=== PATIENT | male | born 1940 | race Caucasian/White ===

== ENCOUNTER → 2018-08-30 | Outpatient (CLI) | payer MEDICARE ==
--- NOTE | 2018-08-30 13:50 | CT ---
EXAMINATION TYPE: CT lower extremity RT wo con DATE OF EXAM: 08/30/2018 COMPARISON: None. HISTORY: right foot and ankle pain, primary osteoarthritis. CT DLP: 1050 mGycm Automated exposure control for dose reduction was used. FINDINGS: Exam is performed ankle replacement protocol as requested images for presurgical planning and upper d iagnostic purposes. Scanning through right knee shows metallic hardware from prosthesis causing streak artifact grossly s atisfactory in position. Scanning of right ankle shows severe tibiotalar joint space loss with medial tilting of the talus, th ere is asymmetric marked medial narrowing with [id number] formation and extensive subchondral cysti c change. Mild to moderate spurring from the lateral malleolus is present. Moderate spurring anterior posterior tibiotalar joint are noted. Subtalar joint shows moderate spurring and subchondral cystic change. IMPRESSION: ABOVE.
== END ==
LOC: RADCTMAIN 12:11
PROVIDERS: ATTEND Orthopaedic Surgery
DX: M77.52 Other enthesopathy of left foot and ankle (principal)

== ENCOUNTER → 2019-02-28 | Outpatient (CLI) | payer MEDICARE ==
--- NOTE | 2019-02-28 12:47 | CT ---
EXAMINATION TYPE: CT lower extremity RT wo con DATE OF EXAM: 02/28/2019 COMPARISON: 08/30/2018 HISTORY: Rt ankle pain, pre op CT DLP: 556 mGycm Automated exposure control for dose reduction was used. TECHNIQUE: axial images were obtained through the ankle and the knee. Images were obtained at 3 mm th ick sections. There is some limitation as the patient could not get the other leg out of the field-of -view during the exam. See ankle protocol was utilized. FINDINGS: There is a right knee prosthesis. Beam hardening artifact from the prosthesis is present. No acute fr actures are evident. Small joint effusion appears to be present. Right ankle: Degenerative joint changes are present through the ankle mortise. Acute fracture is not identified. Multiple subchondral cysts are evident. Loss of the joint space at the talotibial junctio n. Degenerative changes are also noted at the talocalcaneal junctions. Three-D reconstructed images performed by the technologist are imaged and reviewed. IMPRESSION: 1. IMAGING THROUGH THE RIGHT KN[facility].
== END | disposition home or self-care (01) ==
LOC: RADCTMAIN 11:15
PROVIDERS: ATTEND Orthopaedic Surgery
DX: M25.571 Pain in right ankle and joints of right foot (principal); M19.071 Primary osteoarthritis, right ankle and foot; Z87.891 Personal history of nicotine dependence; Z85.9 Personal history of malignant neoplasm, unspecified

== ENCOUNTER → 2019-04-01 | Outpatient (CLI) | payer MEDICARE | END | disposition home or self-care (01) | LOC: LABPAT 15:50 | PROVIDERS: ATTEND Orthopaedic Surgery | DX: Z01.812 Encounter for preprocedural laboratory examination (principal) | CPT/HCPCS: 87070 ==

== ENCOUNTER 2019-04-14 06:18 | Inpatient (IN) | payer MEDICARE ==
[2019-04-07 11:30] VITALS: BMI 21.4
[~2019-04-14 06:18] MED LIST: HYDROmorphone 0.5 MG/0.5 ML SYRINGE IVP PRN
[2019-04-14] MEDS: LACTATED RINGERS 1,000 ML IV SCH (07:02)
[2019-04-14] MEDS ORDERED: LIDOCAINE 1% 20 ML VIAL (10MG/ML) FOR IV START INTRADERMA ONE (07:03)
[2019-04-14] MEDS ORDERED: ONDANSETRON 4 MG/2 ML VIAL IVP ONE (07:08)
[2019-04-14] MEDS ORDERED: DEXAMETHASONE SOD PHOSPHATE 10 MG/ML 1 ML VIAL IV ONE (07:08)
[2019-04-14 07:19] LABS: Potassium 3.9 mmol/L (3.5-5.1)
[2019-04-14] MEDS ORDERED: LIDOCAINE 2%-EPI 1:100,000 20 ML VIAL ONE (07:58)
[2019-04-14] MEDS ORDERED: MIDAZOLAM 2 MG/2 ML VIAL ONE (07:58)
[2019-04-14] MEDS ORDERED: KETAMINE 10 MG/ML 20 ML VIAL ONE (07:58)
[2019-04-14] MEDS ORDERED: fentaNYL (PF) 50 MCG/ML 2 ML AMP ONE (07:58)
[2019-04-14] MEDS ORDERED: PROPOFOL 10 MG/ML 20 ML VIAL IV ONE (07:58)
[2019-04-14] MEDS ORDERED: diphenhydrAMINE 50 MG/ML 1 ML VIAL ONE (07:58)
[2019-04-14] MEDS ORDERED: ROPIVACAINE 5 MG/ML 30 ML VIAL ONE (07:58)
[2019-04-14] MEDS ORDERED: ceFAZolin 3,000 MG in SODIUM CHLORIDE 0.9% IRRIGATIO 3,000 ML IRRIGATION ONE (08:58)
--- NOTE | 2019-04-14 10:46 | P.OP ---
Date of Procedure: 04/14/19 Preoperative Diagnosis: 1. Right varus ankle arthritis 2. Right gastrocnemius equinus contracture Postoperative Diagnosis: Same Procedure(s) Performed: 1. Right total ankle arthroplasty 2. Right gastrocnemius recession 3. Application of short leg splint by physician, right ankle Anesthesia: regional, spinal Surgeon: Ponce Gross [employer] Repairer #1: Raoul Jack Estimated Blood Loss (ml): 10 IV fluids (ml): 1,200 Pathology: none sent Condition: stable Disposition: PACU Indications for Procedure: The patient is a very pleasant to see healthy 78-year-old male who is a long- standing history of problems with both of his ankles. Several years ago he underwent a TTC fusion on the left and did well with this. He developed progressively worsening pain on the right. We discussed continued nonsurgical treatment with bracing, activity modification, NSAIDs pain medication, and occasional corticosteroid injections versus surgery. The patient failed to improve with nonsurgical treatment and requested to go forward with surgery. Based on the patient's x-ray findings, minimal deformity, age, and motion in the ankle we discussed that he would be a candidate for total ankle replacement. We also discussed the advantages of having a total ankle replacement on the right given his fused left ankle. The patient agreed with this and requested to go forward with an ankle replacement and gastrocnemius recession. The patient had a weakly palpable pulse but well-perfused foot on exam. Given his weakly palpable pulse and age he was sent to vascular surgery for a preoperative workup to determine vascular inflow and his ability to heal an elective right surgery. He was seen by Dr. Prado who cleared him for surgery from a vascular standpoint. He was also cleared by his denture waxer. We discussed the potential risks and complications of an elective ankle replacement including but not limited to risk of anesthesia, superficial infection, deep infection, delayed wound healing, wound necrosis, damage to local blood vessels or nerves, failure of the implant, collapse of the implant, gutter impingement, periprosthetic infection requiring implant removal, risk of need of a fusion, DVT, PE, other medical complications, and possibly loss of life or limb. The patient voiced his understanding of these potential complications and provided his verbal and written consent to go forward with surgery. He also Ignelzi other less common complications are possible. Description of Procedure: The patient was identified in preoperative holding and the correct left ankle was marked with my initials. I reviewed the consent form with the patient and his family. All of their questions were answered. The patient was then brought back to the operating room by anesthesia. He was positioned on the OR table where a spinal anesthetic was given. A tourniquet was applied to the proximal aspect of the right leg. A bump was placed in the right buttock internally rotating the leg to neutral. The left leg was secured to the table with foam and tape. A ramp was placed under the right leg to facilitate imaging. The right leg was then prepped and draped in the standard sterile fashion. Prior to starting surgery timeout was performed identifying the correct patient, operative extremity, and procedure. The patient's leg was then elevated, exsanguinated with an Esmarch bandage, and the tourniquet was inflated to 250 mmHg. The patient was under anesthesia a Silfverskiold test was performed. With the knee extended I was unable to dorsiflex past neutral and when I bent the knee I was able to easily dorsiflexed past neutral. I interpreted this as an isolated gastrocnemius contracture and a gastroc recession was then performed. A 3 cm longitudinal incision was made 1 thumb breadth posterior to the tibia at the distal medial muscle belly of the gastrocnemius. The fascia was incised longitudinally in line with the skin incision. The gastrocnemius aponeurosis was isolated. The sural nerve was found to be adherent to the superficial fascia. Modified right angle retractors were placed and the gastrocnemius was cut in its entirety from medial to lateral. The plantaris muscle was also identified and a 1 cm section was removed. The wound was then thoroughly irrigated and closed in layers with 2-0 Vicryl the deep subcu and a running 3-0 Monocryl subcuticular stitch for the skin. Attention was then turned to the ankle. A standard anterior approach to the ankle was marked out with a skin marker. Skin incision was made with a scalpel. A branch of the superficial peroneal nerve was identified and carefully retracted. The extensor retinaculum was cut taking care to leave coverage over the tibialis anterior. I exploited the interval between the tibialis anterior and EHL. The neurovascular bundle was identified and carefully retracted laterally. Crossing veins were controlled with electrocautery. An anterior capsulotomy was performed and the capsule was raised both medially and laterally to expose the entire anterior aspect of the ankle joint. Soft tissue over the anterior aspect of the distal tibia was carefully elevated with a scalpel. The custom guide was placed over the distal tibia until it found its "sweet spot." A single K wire was in third inserted and fluoroscopy was used to verify alignment of the cut guide. Once it was felt to matched preoperative templating 3 additional K wires were placed into the cut guide holding it in place. The custom guide was carefully taken off of the tibia and the alignment jig was placed and secured. The corners were drilled after alignment was verified with preoperative templating. A size 4 cut guide was then placed over the pins. The pins distally were cut flush with the cut guide. The ankle was held at neutral and the talus was also cut to allow and in bone prosthesis. Fluoroscopy was used to verify position of the cut guide. Gutter pins were placed. A microsagittal saw was used to make cuts in the tibia and talus. The cut guide was then removed followed by all of the pins except for the 2 most proximal pins. The cut talus was able to be removed in 1 piece. The extraction pin was placed in the tibia which was then carefully removed. On inspection the cuts appeared to be clean with no impinging bone. The wound was thoroughly irrigated. An aggressive cutter debridement was performed. The tibial tray was placed and the anterior and posterior broach handles created paths for the implant. I elected to use a standard size 4 tibial component. I then placed a trial poly-insert and floated a size 3 talus. Once it found it sweet spot fluoroscopy was used to verify coverage on both an AP and lateral image. Once I was happy it was pinned into place. The anterior pegs were drilled. The ankle was plantarflexed and the central pin was placed. The tibial tray anterior component were removed and the large reamer was used to create a central slot for the peg. The wound was then thoroughly irrigated. The standard size 4 tibial component was dispensed and carefully tapped into place until it was fully seated. The implant had nice coverage and was all the way down to bone anteriorly and felt solid. The size 3 talar component was dispensed and gently tapped into place until it was fully seated. I trialed with a 7 mm poly-which felt stable. The final 7 mm poly-was placed in the insertion device and gently inserted. Final fluoroscopic images were taken including a chair mortise and lateral view, maximum dorsiflexion, maximum plantar flexion, varus stress, and valgus stress. The implant appeared well seated and the ankle was stable. The wound was then thoroughly irrigated with antibiotic impregnated saline. The capsule was closed with interrupted 0 Vicryl. The retinaculum was closed with interrupted 0 Vicryl. The deep subcu was carefully reapproximated using interrupted 3-0 Monocryl. The skin was closed using 3-0 nylon Algor modification of the Donati stitch. I verified that all instrument, sponge, and sharp counts were correct. Brown quarter inch stretchy Steri-Strips were placed between the sutures. A sterile dressing consisting of Betadine soaked Adaptic, 4 x 4, and web roll was applied. The drapes were taken down and a well-padded bulky Fonseca splint was placed with the ankle at neutral. The patient was then awoken from his anesthetic, transferred to a gurney, and brought to recovery having tolerated the procedure well. Raoul Jack PA-C was required as a skilled outpatient physical therapist assistant for patient positioning, surgical exposure, retraction, closure of wound, and application of splint. Plan: The patient is given a be admitted overnight for IV antibiotics and pain control. We will consult internal medicine for perioperative medical ma lenin. He will work with physical therapy. I anticipate discharge home tomorrow when his pain is controlled, he is receive 2 doses of postoperative antibiotics and he is cleared by both internal medicine and physical therapy.
--- NOTE | 2019-04-14 10:51 | FL ---
EXAMINATION TYPE: FL guidance operating room, XR ankle limited RT DATE OF EXAM: 04/14/2019 CLINICAL HISTORY: Right ankle pain. TECHNIQUE: Fluoroscopy. Limited intraoperative views right ankle. COMPARISON: CT right ankle February 28, 2019. FINDINGS: Fluoroscopic guidance was provided during ankle replacement procedure performed by Dr. Marisa perez. A total of 1 minute 5 seconds of fluoroscopic time was utilized during the procedure and two spot intraoperative images are acquired. Intraoperative images acquired show placement of metallic hardware distal tibial level and at the lev el of the superior talus in satisfactory alignment. IMPRESSION: As Above.
[2019-04-14] MEDS ORDERED: BISACODYL 10 MG SUPP RECTAL PRN (10:57)
[2019-04-14] MEDS ORDERED: HYDROcodone/APAP 5-325MG 1 EACH TAB PO PRN (10:57)
[2019-04-14] MEDS ORDERED: NALOXONE 0.4 MG/ML 1 ML VIAL IV PRN (10:57)
[2019-04-14] MEDS ORDERED: MAGNESIUM HYDROXIDE 2,400 MG/10 ML CUP PO PRN (10:57)
--- NOTE | 2019-04-14 12:23 | P.ANPRN ---
Procedure Note - Anesthesia - Nerve Block Performed Right Saphenous/Obturator Single Time Out Performed: Yes Date of Procedure: 04/14/19 Procedure Start Time: 11:43 Procedure Stop Time: 11:51 Location of Patient Procedure: PACU Indication: Acute Post-Operative Pain, Requested by Surgeon Specifically requested for management of pain by DrJuan Manuel: Ponce Gross Sedation Type: Sedate with meaningful contact maintained Preparation: Sterile Prep Position: Supine Catheter: None Needle Types: Pajunk Needle Gauge: 20 Ultrasound used to visualize needle placement: Yes Ultrasound used to observe medication spread: Yes Injectate: Other (see comment) (0.25% ropivacaine/1% lidocaine 20 mL) Adjunct: Epinephrine (see comment for dilution ratio) (1:200,000) Blood Aspirated: No Pain Paresthesia on Injection Noted: No Resistance on Injection: Normal Image Stored and Saved: Yes Events: Uneventful and Well Tolerated
--- NOTE | 2019-04-14 12:24 | P.ANPRN ---
Procedure Note - Anesthesia - Nerve Block Performed Right Popliteal Single Time Out Performed: Yes Date of Procedure: 04/14/19 Procedure Start Time: 11:52 Procedure Stop Time: 12:00 Location of Patient Procedure: PACU Indication: Acute Post-Operative Pain, Requested by Surgeon Specifically requested for management of pain by DrJuan Manuel: Ponce Gross Sedation Type: Sedate with meaningful contact maintained Preparation: Sterile Prep Position: Left Lateral Catheter: None Needle Types: Pajunk Needle Gauge: 21 Ultrasound used to visualize needle placement: Yes Ultrasound used to observe medication spread: Yes Injectate: Other (see comment) (0.25% ropivacaine/1% lidocaine 20 mL) Adjunct: Epinephrine (see comment for dilution ratio) (1:200,000) Blood Aspirated: No Pain Paresthesia on Injection Noted: No Resistance on Injection: Normal Image Stored and Saved: Yes Events: Uneventful and Well Tolerated
[2019-04-14] MEDS ORDERED: LACTATED RINGERS 1,000 ML IV ONE (13:32)
[2019-04-14] MEDS: SODIUM CHLORIDE 0.9% 1,000 ML IV SCH ×2 (14:56→22:48)
[2019-04-14] MEDS: ENOXAPARIN 30 MG/0.3 ML SYRINGE SQ SCH (20:34)
[2019-04-14] MEDS ORDERED: SENNOSIDES-DOCUSATE SODIUM 1 EACH TAB PO SCH (21:00)
[2019-04-15] MEDS: HYDROcodone/APAP 10-325MG 1 EACH TAB PO PRN ×2 (01:41→10:08)
[2019-04-15] MEDS: HYDROmorphone 0.5 MG/0.5 ML SYRINGE IVP PRN ×2 (01:41→04:42)
[2019-04-15 02:17] VITALS: RESP 16
[2019-04-15] MEDS: LACTATED RINGERS 1,000 ML IV SCH (02:28)
[2019-04-15 07:32] VITALS: BP 113/65; PULSE 59; TEMP 97.9
[2019-04-15] MEDS: SODIUM CHLORIDE 0.9% 1,000 ML IV SCH (08:57)
[2019-04-15] MEDS: ENOXAPARIN 30 MG/0.3 ML SYRINGE SQ SCH (09:24)
[2019-04-15] MEDS ORDERED: MULTIVITAMINS, THERA 1 EACH TAB PO SCH (12:00)
== END 2019-04-15 11:27 | disposition home or self-care (01) | DRG 469 ==
LOC: 2ORMAIN 06:18 → 4SSUR 10:48
PROVIDERS: ADMIT Orthopaedic Surgery; ATTEND Orthopaedic Surgery
PROC: 0L8N0ZZ Division of Right Lower Leg Tendon, Open Approach (ICD-10-PCS; 2019-04-14)
PROC: 0SRF0JZ Replacement of Right Ankle Joint with Synthetic Substitute, Open Approach (ICD-10-PCS; principal; 2019-04-14 08:00)
DX: M62.461 Contracture of muscle, right lower leg (principal); M19.071 Primary osteoarthritis, right ankle and foot; Z85.828 Personal history of other malignant neoplasm of skin; Z98.1 Arthrodesis status; Z96.651 Presence of right artificial knee joint; Z87.891 Personal history of nicotine dependence; Z79.899 Other long term (current) drug therapy
CPT/HCPCS: 64445; 64450; 76942; 80051

== ENCOUNTER 2019-06-10 13:53 | Day surgery (SDC) | payer MEDICARE ==
[~2019-06-10 13:53] MED LIST changes: -HYDROmorphone 0.5 MG/0.5 ML SYRINGE IVP PRN; +Pre Op ABX Message 1 EACH MISC MISCELLANE ONE
[2019-06-10] MEDS ORDERED: LIDOCAINE 1% 20 ML VIAL (10MG/ML) FOR IV START INTRADERMA ONE (14:00)
[2019-06-10] MEDS ORDERED: LACTATED RINGERS 1,000 ML IV ONE (14:43)
[2019-06-10] MEDS ORDERED: ONDANSETRON 4 MG/2 ML VIAL IVP ONE (14:44)
[2019-06-10] MEDS ORDERED: DEXAMETHASONE SOD PHOSPHATE 10 MG/ML 1 ML VIAL IV ONE (14:44)
[2019-06-10] MEDS ORDERED: fentaNYL (PF) 50 MCG/ML 2 ML AMP IV ONE (14:49)
[2019-06-10] MEDS ORDERED: LIDOCAINE 1% INJ 10MG/ML (20 ML MDV) ONE (17:11)
[2019-06-10] MEDS ORDERED: ePHEDrine SULFATE/0.9% NACL/PF 50 MG/5 ML SYRINGE IV ONE (17:11)
[2019-06-10] MEDS ORDERED: VANCOMYCIN 1,000 MG VIAL ONE (17:11)
[2019-06-10] MEDS ORDERED: fentaNYL (PF) 50 MCG/ML 2 ML AMP ONE (17:11)
[2019-06-10] MEDS ORDERED: MIDAZOLAM 2 MG/2 ML VIAL ONE (17:11)
[2019-06-10] MEDS ORDERED: PROPOFOL 10 MG/ML 20 ML VIAL IV ONE (17:11)
[2019-06-10] MEDS ORDERED: SODIUM CHLORIDE 0.9% 100 ML with VANCOMYCIN 1,000 MG IV ONE ×2 (18:41)
[2019-06-10] MEDS ORDERED: SODIUM CHLORIDE 0.9% 500 ML 500 ML IV ONE (18:41)
[2019-06-10] MEDS ORDERED: BUPIVACAINE (PF) 0.5% 30 ML VIAL SQ ONE (19:04)
[2019-06-10] MEDS ORDERED: LIDOCAINE 1% INJ 10MG/ML (20 ML MDV) SQ ONE (19:04)
[2019-06-10] MEDS ORDERED: ONDANSETRON 4 MG/2 ML VIAL IVP PRN (19:22)
[2019-06-10] MEDS ORDERED: HYDROcodone/APAP 5-325MG 1 EACH TAB PO PRN (19:22)
[2019-06-10] MEDS ORDERED: HYDROmorphone 0.5 MG/0.5 ML SYRINGE IVP PRN (19:22)
[2019-06-10] MEDS ORDERED: VANCOMYCIN IV PER PHARMACY 1 EACH MISC MISCELLANE PRN (19:30)
--- NOTE | 2019-06-10 19:41 | P.OP ---
Date of Procedure: 06/10/19 Preoperative Diagnosis: Left hand/wrist extensor tenosynovitis Postoperative Diagnosis: Left hand/wrist extensor tenosynovitis - likely septic Procedure(s) Performed: 1. Exploration, irrigation and debridement of left hand/wrist with extensor tenosynovectomy 2. PIN (Posterior interosseous nerve) Neurectomy Anesthesia: RACH, local Surgeon: Kike Grant Estimated Blood Loss (ml): 10 Pathology: other (Culture swabs, Extensor tendon fluid for crystal analysis) Condition: stable Disposition: PACU Indications for Procedure: The patient is a 78-year-old male who was diagnosed with extensor tenosynovitis of his right hand. Initially, it appeared inflammatory in aseptic; however, he developed progressively worsening pain and swelling, concerning for a possible infectious process. Surgical debridement was recommended. Risks and benefits were reviewed including (but not limited to) the risks of bleeding, injury to tendons or neurovascular structures, persistent or recurrent infection, wound healing problems, stiffness, adhesions and possible need for additional surgery. The patient expressed understanding, willingness to accept these risks and wished to proceed with surgery. Consent forms were signed. The surgical site was confirmed and marked preoperatively. Operative Findings: The dorsal subcutaneous tissues were markedly edematous with thin person fluid diffusely along the dorsal wrist and hand; 3-4 cc of thick, cloudy yellow fluid was encountered in the fourth dorsal compartment. No obvious tendon damage. Description of Procedure: The patient was brought to the operating suite by the anesthesia team and was positioned supine. All bony prominences were well-padded. General anesthesia was administered uneventfully. A tourniquet was placed on the right arm, which was then prepped and draped in standard, sterile fashion. A time-out was performed, confirming patient identifiers, the operative side, site and the procedure to be performed: all team members expressed agreement. The limb was exsanguinated with gravity and the tourniquet was inflated. A midline longitudinal incision was marked over the dorsal hand and wrist. The skin was sharply incised and skin flaps were elevated, taking care to protect traversing dorsal veins and sensory nerve branches. There was an abundant amount of thin, person fluid throughout the dorsal subcutaneous tissues. A specimen was collected and sent for crystal analysis. A moderate amount of fibrinous tenosynovial tissue was identified along the common digital extensors. A transverse split was made between the extensor retinaculae of the hand and wrist. The fourth compartment was bluntly explored and a large pocket of thick, cloudy yellow fluid was encountered. A culture swab of this fluid was obtained and sent with a specimen of the tenosynovial tissue. The patient was then administered IV vancomycin intraoperatively. A combination of sharp and mechanical debridement, with scalpels and rongeurs, was used to resect this thickened tissue off the extensor tendons. The tendons showed no significant fraying or degenerative changes. The posterior interosseous nerve was identified in the floor of the fourth compartment. A 1 cm segment was sharply excised for adjunctive postoperative pain control. After thorough debridement of the extensor tendons, the wound was copiously irrigated with 4 L of normal saline using gravity inflow and cystoscopy tubing. The surrounding soft tissues were mechanically debrided with a curette. The tourniquet was released after 53 minutes at 250 mmHg. Good hemostasis was obtained with held pressure and electrocautery. The incision was loosely closed with interrupted 4-0 Prolene sutures. A 10 mm channel drain was cut into 3 pieces which were inserted along the wound to allow for drainage. Local anesthetic without epinephrine was injected for postoperative pain control. Sterile dressings of Adaptic, 4 x 4's, Kerlix and Coban were applied. All sponge, needle and instrument counts were correct at the end of the case. The patient tolerated the procedure well and was taken to recovery in stable condition. He will be admitted for continued monitoring and empiric IV antibiotics, to be guided by intraoperative cultures.
[2019-06-10] MEDS ORDERED: VANCOMYCIN 1,250 MG in SODIUM CHLORIDE 0.9% 250 ML IVPB ONE (21:00)
[2019-06-10 23:21] LABS: African American GFR (CKD) >90 (>60 ml/min/1.73 sqM); Anion Gap 6 mmol/L; Blood Urea Nitrogen 19 mg/dL (9-20); C Reactive Protein 62.7 mg/L (<10.0); Calcium 8.8 mg/dL (8.4-10.2); Carbon Dioxide 27 mmol/L (22-30); Chloride 103 mmol/L (98-107); Glucose 244 mg/dL (74-99); Non-African American GFR(CKD) 87 (>60 ml/min/1.73 sqM); Potassium 4.4 mmol/L (3.5-5.1); Sodium 136 mmol/L (137-145); Uric Acid 6.2 mg/dL (3.5-8.5)
[2019-06-10 23:26] LABS: Basophils % (A) 0 %; Eosinophils % (A) 0 %; HGB 11.7 gm/dL (13.0-17.5); Lymphocytes # (A) 0.5 k/uL (1.0-4.8); Lymphocytes % (A) 6 %; MCH 31.1 pg (25.0-35.0); MCHC 33.5 g/dL (31.0-37.0); MCV 92.9 fL (80.0-100.0); Monocytes # (A) 0.2 k/uL (0-1.0); Monocytes % (A) 3 %; Neutrophils # (A) 7.5 k/uL (1.3-7.7); Neutrophils % (A) 90 %; Platelet Count 242 k/uL (150-450); RBC 3.76 m/uL (4.30-5.90); RDW 14.4 % (11.5-15.5); WBC 8.3 k/uL (3.8-10.6)
[2019-06-11 00:21] LABS: Erythrocyte Sedimentation Rate 52 mm/hr (0-15)
[2019-06-11] MEDS: ENOXAPARIN 40 MG/0.4 ML SYRINGE SQ SCH (07:25)
[2019-06-11] MEDS ORDERED: ALBUTEROL NEBULIZED 2.5 MG/3 ML INHALATION PRN (07:55)
[2019-06-11] MEDS ORDERED: VANCOMYCIN IV PER PHARMACY 1 EACH MISC MISCELLANE PRN (07:56)
[2019-06-11 08:27] LABS: Glucose,Whole Blood 252 mg/dL (75-99)
[2019-06-11] MEDS: MONTELUKAST 10 MG TAB PO SCH (08:37)
[2019-06-11] MEDS: ASPIRIN 81 MG PO SCH (08:37)
[2019-06-11] MEDS: INSULIN ASPART (NovoLOG) 100 UNIT/ML VIAL SQ SCH ×4 (08:40→21:39)
--- NOTE | 2019-06-11 08:46 | P.CONS ---
History of Present Illness - Reason for Consult Consult date: 06/11/19 [facility] Requesting physician: Kike Grant - Chief Complaint Right hand pain and swelling - History of Present Illness Patient is an 78-year-old male past medical history of COPD, severe osteoarthritis, and dyslipidemia who presented to the hospital at the direction of Dr. Grant. He was seen in the office on 06/10 and noted to have worsening lying of his right hand at the MCP and therefore was brought into the OR for operative I&D for tenosynovitis. He underwent the procedure well without any immediate postoperative complications. Patient seen and examined at bedside. He reports that secondary to right hand swelling he started seeing Dr. Grant 2 weeks ago. His right hand knuckles swollen at the MCP and boggy feeling. He was having lots of pain and difficult difficulty with movement. He reports that he could not fully extend or flex his fingers. He was supposed to have a follow-up appointment on 06/13 however his pain was so severe that he called the office on 06/09 and they were able to see him in office on 06/10. Eyes any constitutional symptoms such as fevers, chills, right ear, chest pain, shortness of breath, nausea, vomiting, or diarrhea. Reports a Hx of arthritis but no gout. He had a R total ankle replacement with Dr. Florez in April who notice increased swelling in Right hand during his follow-up appointment and recommended seeing Dr. Grant. He has been using a walker cane since having his ankle replacement but was not using one prior. He denies any trauma to the hand such as falls, cuts, scratches, or bug bites. PCP. Dr. Weber last seen about 1 month ago. Blood sugar was noted to be 243 after surgery, patient denies any history of diabetes. He follows with Dr. Weber approximately once every 3-6 months. He denies any family history of diabetes. Review of Systems Pertinent positives and negatives as discussed in HPI, a complete review of systems was performed and all other systems are negative. Past Medical History Past Medical History: Cancer, COPD, Hyperlipidemia, Osteoarthritis (OA) Additional Past Medical History / Comment(s): SKIN CANCER History of Any Multi-Drug Resistant Organisms: None Reported Past Surgical History: Appendectomy, Back Surgery, Joint Replacement Additional Past Surgical History / Comment(s): TOTAL RIGHT KNEE, ARTHROSCOPIC RIGHT KNEE, LT ANKLE FUSION, TOTAL RIGHT ANKLE REPLACEMENT, Spinal Fusion Past Anesthesia/Blood Transfusion Reactions: No Reported Reaction Past Psychological History: No Psychological Hx Reported Smoking Status: Former smoker Past Alcohol Use History: Rare Additional Past Alcohol Use History / Comment(s): STARTED SMOKING AT AGE 19 QUIT SMOKING 2013 SMOKED 1/2PPD Past Drug Use History: None Reported Additional History: Youngest daughter living with him. Using walker after ankle replacement. - Past Family History Brother(s) Family Medical History: Cancer Additional Family Medical History / Comment(s): "LYMPH NODE CANCER" Mother Family Medical History: Myocardial Infarction ([place]) Father Family Medical History: Myocardial Infarction ([place]) Medications and Allergies Home Medications Medication Instructions Recorded Confirmed Type Albuterol Inhaler [Ventolin Hfa 1 - 2 puff INHALATION RT-Q6H PRN 04/07/19 06/10/19 History Inhaler] Aspirin [Adult Low Dose Aspirin EC] 81 mg PO DAILY 04/07/19 06/10/19 History Fluticasone/Salmeterol [Advair 1 inhalation PO BID 04/07/19 06/10/19 History 250-50 Diskus] Montelukast [Singulair] 10 mg PO DAILY 04/07/19 06/10/19 History Hydrocodone/Acetaminophen [[place] 1 tab PO Q6HR PRN #30 tab 04/15/19 06/10/19 Rx 5-325] Albuterol Nebulized [Ventolin 06/10/19 History Nebulized] Pravastatin Sodium [Pravachol] 10 mg PO DAILY 06/10/19 06/10/19 History Allergies Allergy/AdvReac Type Severity Reaction Status Date / Time No Known Allergies Allergy Verified 04/14/19 06:41 Physical Exam Osteopathic Statement: *. No significant issues noted on an osteopathic structural exam other than those noted in the History and Physical/Consult. Vitals: Vital Signs Temp Pulse Pulse Resp BP Pulse Ox 06/11/19 04:40 97.4 F L 62 16 120/58 96 06/11/19 01:06 130/60 06/11/19 00:00 62 84 16 06/10/19 23:31 130/86 06/10/19 23:24 95/47 06/10/19 22:24 62 109/53 06/10/19 21:54 75 130/59 06/10/19 21:35 65 115/57 06/10/19 21:20 64 113/57 06/10/19 21:05 67 116/58 06/10/19 20:50 130/56 06/10/19 20:39 97.6 F 78 16 153/78 94 L 06/10/19 20:35 71 142/58 06/10/19 20:20 84 18 151/81 98 06/10/19 20:05 75 18 127/65 95 06/10/19 19:50 75 18 128/61 95 06/10/19 19:35 72 18 117/59 99 06/10/19 19:20 98.4 F 78 19 124/72 99 06/10/19 15:01 73 16 121/58 99 06/10/19 14:36 98.3 F 78 16 126/60 97 Intake and Output 06/10/19 06/11/19 06/11/19 22:59 06:59 14:59 Intake Total 550 840 Output Total 10 Balance 540 840 Intake: IV 550 Intake, IV Titration 250 Amount Vancomycin 1,250 mg In 250 Sodium Chloride 0.9% 250 ml @ 125 mls/hr IVPB Q12H [facility] Rx#:[id number] Oral 590 Output: Estimated Blood Loss 10 Other: # Voids 1 2 # Bowel Movements 1 Weight 71.668 kg General: non toxic, no distress, appears younger than stated age, normal weight Derm: no unusual rashes/lesions no unusual ecchymoses, warm, dry Head: atraumatic, normocephalic, symmetric Eyes: EOMI, no lid lag, anicteric sclera, pupils equal round reactive to light ENT: Nose and ears atraumatic, no thrush, no pharyngeal erythema Neck: No thyromegaly, no cervical lymphadenopathy, trachea midline, supple Mouth: no lip lesion, mucus membranes moist Cardiovascular: S1S2 reg, no murmur, positive posterior tibial pulse bilateral, no edema, capillary refill less than 2 seconds Lungs: CTA bilateral, no rhonchi, no rales , no accessory muscle use Abdominal: soft, nontender to palpation, no guarding, no appreciable organomegaly, normal bowel sounds Ext: Right hand with dressing in place, movement normal in right ringers, no gross muscle atrophy, muscle strength 5 out of 5 in all 4 extremities grossly, no contractures, Neuro: CN II-XI grossly intact, light touch intact all 4 extremities, finger to nose within normal limits, Psych: Alert, oriented, appropriate affect Results CBC & Chem 7: 06/10/19 22:56 06/10/19 22:56 Labs: Abnormal Lab Results - Last 24 Hours (Table) 06/10/19 06/10/19 06/10/19 Range/Units 19:10 22:56 22:56 RBC 3.76 L (4.30-5.90) m/uL Hgb 11.7 L (13.0-17.5) gm/dL Hct 35.0 L (39.0-53.0) % Lymphocytes # 0.5 L (1.0-4.8) k/uL ESR 52 H (0-15) mm/hr Sodium 136 L (137-145) mmol/L Glucose 244 H (74-99) mg/dL C-Reactive Protein 62.7 H (<10.0) mg/L Synovial Crystals Seen H (None Seen) Microbiology - Last 24 Hours (Table) 06/10/19 19:10 Fungal Culture - Preliminary Other - Other 06/10/19 19:10 Wound Culture - Preliminary Other - Other 06/10/19 19:10 Anaerobic Culture - Preliminary Other - Other Assessment and Plan Assessment: Right hand tenosynovitis - Pharmacy to dose IV vanco - Await for cultures - Monosodium urate crystals noted in synovial fluid. Conisder colchicine if appropraite by ortho/hand. Would avoid steroids if possible with elevated Blood sugars. - Pain control - ? if can still use walker or should convert to micky or 4 pronged cane, await ortho recs Hyperglycemia without formal diagnosis of DM - SSI - Follow BS - Check A1C HLD - statin COPD without exacerbation - resume long acting beta agonist and inhaled corticosteroid - prn albuterol DVT prophylaxis: SCDs Discussed with: Patient, and nursing Anticipated discharge: per ortho Anticipated discharge place: home with home health A total of 60 minutes was spent on the care of this complex patient more than 50% of the time was spent in counseling and care coordination. Thank you for allowing us to participate in the care of this pleasant patient. Do not hesitate to contact us with questions. Someone can be reached from the [facility] hospitalist group all hours of the day at [phone] or via perfect serve.
[2019-06-11] MEDS: SYMBICORT 80-4.5 MCG INHALER INHALATION SCH ×2 (10:20→20:49)
[2019-06-11 11:29] LABS: Glucose,Whole Blood 87 mg/dL (75-99)
[2019-06-11] MEDS: PRAVASTATIN SODIUM 20 MG TAB PO SCH (11:35)
[2019-06-11] MEDS: VANCOMYCIN 1,250 MG in SODIUM CHLORIDE 0.9% 250 ML IVPB SCH ×2 (11:35→22:41)
[2019-06-11 17:18] LABS: Glucose,Whole Blood 120 mg/dL (75-99)
--- NOTE | 2019-06-11 19:21 | P.PN ---
Subjective Progress Note Date: 06/11/19 The patient states the pain has decreased substantially compared to preop, presently 1-2. Doesn't feel he needs pain medication at its current level. Has been ranging the fingers frequently as instructed and says they are moving much better. Objective - Vital Signs Vital signs: Vital Signs Temp 98.7 F 06/11/19 11:33 Pulse 68 06/11/19 11:33 Resp 18 06/11/19 11:33 BP 113/55 06/11/19 11:33 Pulse Ox 96 06/11/19 04:40 Intake & Output 06/10/19 06/11/19 06/11/19 18:59 06:59 18:59 Intake Total 950 840 Output Total 10 Balance 950 830 Weight 71.668 kg 71.668 kg Intake: IV 950 Intake, IV Titration 250 Amount Vancomycin 1,250 mg In 250 Sodium Chloride 0.9% 250 ml @ 125 mls/hr IVPB Q12H [facility] Rx#:[id number] Oral 590 Output: Estimated Blood Loss 10 Other: # Voids 2 # Bowel Movements 1 - Exam The dressings were removed. Appropriate amount of dried blood on the dressings. No active bleeding. No purulence. The proximal and distal drains were removed-no fluid followed. No erythema. No focal subcutaneous fluctuance. Minimal tenderness to palpation. He is able to actively flex and extend the fingers with minimal pain and can make a loose fist. - Labs CBC & Chem 7: 06/10/19 22:56 06/10/19 22:56 Labs: Abnormal Lab Results - Last 24 Hours (Table) 06/10/19 06/10/19 06/10/19 Range/Units 19:10 22:56 22:56 RBC 3.76 L (4.30-5.90) m/uL Hgb 11.7 L (13.0-17.5) gm/dL Hct 35.0 L (39.0-53.0) % Lymphocytes # 0.5 L (1.0-4.8) k/uL ESR 52 H (0-15) mm/hr Sodium 136 L (137-145) mmol/L Glucose 244 H (74-99) mg/dL POC Glucose (mg/dL) (75-99) mg/dL C-Reactive Protein 62.7 H (<10.0) mg/L Synovial Crystals Seen H (None Seen) 06/11/19 Range/Units 08:26 RBC (4.30-5.90) m/uL Hgb (13.0-17.5) gm/dL Hct (39.0-53.0) % Lymphocytes # (1.0-4.8) k/uL ESR (0-15) mm/hr Sodium (137-145) mmol/L Glucose (74-99) mg/dL POC Glucose (mg/dL) 252 H (75-99) mg/dL C-Reactive Protein (<10.0) mg/L Synovial Crystals (None Seen) Microbiology - Last 24 Hours (Table) 06/10/19 19:10 Gram Stain - Preliminary Other - Other Wound Culture - Preliminary 06/10/19 19:10 Fungal Culture - Preliminary Other - Other 06/10/19 19:10 Anaerobic Culture - Preliminary Other - Other Assessment and Plan Assessment: 1. Postoperative day #1 status post irrigation and debridement of left hand and wrist with extensor tenosynovectomy 2. Acute gouty tendinopathy 3. Hyperglycemia - possible diabetes mellitus Plan: I discussed the clinical and intraoperative findings with the patient and his f amily. Intraoperative specimens showed the presence of monosodium urate crystals, consistent with acute gouty tendinopathy. While this could simply be an aseptic inflammatory tenosynovitis, infections can present concomitantly with gout. I recommended continuing empiric IV antibiotics until cultures have been finalized. We will check blood cultures as well. New dressings were applied. He was encouraged to continue performing active and passive wrist and digital range of motion. He may weight-bear as tolerated with a walker. He must wear the boot when ambulating.
[2019-06-11 20:14] LABS: Glucose,Whole Blood 113 mg/dL (75-99)
[2019-06-12 07:10] LABS: Glucose,Whole Blood 106 mg/dL (75-99)
[2019-06-12 07:55] LABS: African American GFR (CKD) >90 (>60 ml/min/1.73 sqM); Non-African American GFR(CKD) 86 (>60 ml/min/1.73 sqM)
[2019-06-12] MEDS: INSULIN ASPART (NovoLOG) 100 UNIT/ML VIAL SQ SCH ×2 (07:59→11:50)
[2019-06-12] MEDS: ENOXAPARIN 40 MG/0.4 ML SYRINGE SQ SCH (08:02)
[2019-06-12] MEDS: ASPIRIN 81 MG PO SCH (08:02)
[2019-06-12] MEDS: MONTELUKAST 10 MG TAB PO SCH (08:02)
[2019-06-12] MEDS: PRAVASTATIN SODIUM 20 MG TAB PO SCH (08:02)
[2019-06-12] MEDS: SYMBICORT 80-4.5 MCG INHALER INHALATION SCH (08:08)
[2019-06-12 11:27] LABS: Glucose,Whole Blood 91 mg/dL (75-99)
[2019-06-12] MEDS: VANCOMYCIN 1,250 MG in SODIUM CHLORIDE 0.9% 250 ML IVPB SCH (12:23)
[2019-06-12 13:37] VITALS: BP 123/61; PULSE 61; RESP 17; TEMP 98.1
--- NOTE | 2019-06-12 14:20 | P.PN ---
Subjective Progress Note Date: 06/12/19 The patient reports continued improvement in both pain and ease of movement. He denies any nausea or vomiting. He states that he is feeling much better and is eager to go home. Objective - Vital Signs Vital signs: Vital Signs Temp 97.4 F L 06/12/19 04:46 Pulse 68 06/12/19 08:30 Resp 18 06/12/19 08:30 BP 110/51 06/12/19 04:46 Pulse Ox 97 06/12/19 04:46 Intake & Output 06/11/19 06/12/19 06/12/19 18:59 06:59 18:59 Intake Total 240 840 240 Output Total 1200 200 Balance -960 640 240 Intake: Intake, IV Titration 250 Amount Vancomycin 1,250 mg In 250 Sodium Chloride 0.9% 250 ml @ 125 mls/hr IVPB Q12H [facility] Rx#:[id number] Oral 240 590 240 Output: Urine 1200 200 Other: # Voids 2 2 # Bowel Movements 2 - Exam The dressings were removed. An appropriate, but decreasing, amount of dried sanguinous drainage is present on the dressings. No purulence. The last drain was removed easily and only trace amount of clear serous fluid was expressed from the wound. Minimal tenderness to palpation along the extensor tendons. Mild, appropriate edema across the dorsum of the hand but no focal fluid collection He is able to actively flex and extend the fingers with ease and demonstrates minimal pain and can make a full fist without [id number] deficit. - Labs CBC & Chem 7: 06/10/19 22:56 06/12/19 06:56 Labs: Abnormal Lab Results - Last 24 Hours (Table) 06/11/19 06/11/19 06/12/19 Range/Units 17:17 20:13 07:09 POC Glucose (mg/dL) 120 H 113 H 106 H (75-99) mg/dL Microbiology - Last 24 Hours (Table) 06/10/19 19:10 Gram Stain - Preliminary Other - Other Wound Culture - Preliminary Assessment and Plan Assessment: 1. Postoperative day #2 status post irrigation and debridement of left hand and wrist with extensor tenosynovectomy 2. Acute gouty tendinopathy 3. Transient hyperglycemia - likely stress reaction Plan: I discussed the clinical findings in detail with the patient. New dressings were applied. Though cultures are not yet final, the clinical appearance of the hand and wrist is excellent and shows no sign of an active infection. Recommended placing him on a short course of oral Bactrim as a precaution. He was encouraged to continue performing active and passive wrist and digital ra nge of motion. The patient will be discharged home today. We will contact him if final culture show any changes.
--- NOTE | 2019-06-12 14:44 | P.DS ---
Providers Date of admission: 06/10/2019 Expected date of discharge: 06/12/19 Attending physician: Kike Grant, Consults: 06/10/19 19:22 Consult Physician Routine Consulting Provider: Tressa Lara Consult Reason/Comments: Extensor tenosynovitis Do you want consulting provider notified?: Yes 06/10/19 19:31 Consult Physician Routine Consulting Provider: Idania Buck Consult Reason/Comments: medical management Do you want consulting provider notified?: Yes Primary care physician: Maximo Weber - Discharge Diagnosis(es) (1) Extensor tenosynovitis of right wrist Current Visit: Yes Status: Acute (2) Gout Current Visit: Yes Status: Acute Hospital Course: The patient is a pleasant 78-year-old male who was diagnosed with extensor tenosynovitis. This gradually worsened and there was concern for a possible in fectious process. He underwent surgical debridement on 06/10/2019. Please see operative report for full details of the procedure. He was admitted for continued monitoring and empiric IV antibiotics. Internal medicine was consulted. The patient was found to have hyperglycemia which has since resolved. He is currently being worked up for diabetes. Intraoperative cultures show no growth to date. At this time, the patient's pain is well controlled. He is moving the hand and fingers well. He is tolerating a regular diet. He is deemed stable for discharge home. Patient Condition at Discharge: Good Plan - Discharge Summary Discharge Rx Participant: Yes New Discharge Prescriptions: New Sulfamethox-Tmp 800-160Mg [Bactrim DS 800-160 mg] 1 tab PO Q12HR #10 tab HYDROcodone/APAP 5-325MG [[place] 5-325] 1 tab PO Q4HR PRN #20 tab PRN Reason: Pain Continue Albuterol Inhaler [Ventolin Hfa Inhaler] 1 - 2 puff INHALATION RT-Q6H PRN PRN Reason: Dyspnea Fluticasone/Salmeterol [Advair 250-50 Diskus] 1 inhalation PO BID Montelukast [Singulair] 10 mg PO DAILY Aspirin [Adult Low Dose Aspirin EC] 81 mg PO DAILY Pravastatin Sodium [Pravachol] 10 mg PO DAILY Albuterol Nebulized [Ventolin Nebulized] No Action Hydrocodone/Acetaminophen [[place] 5-325] 1 tab PO Q6HR PRN #30 tab PRN Reason: Pain Discharge Medication List Albuterol Inhaler [Ventolin Hfa Inhaler] 1 - 2 puff INHALATION RT-Q6H PRN 04/07/19 [History] Aspirin [Adult Low Dose Aspirin EC] 81 mg PO DAILY 04/07/19 [History] Fluticasone/Salmeterol [Advair 250-50 Diskus] 1 inhalation PO BID 04/07/19 [History] Montelukast [Singulair] 10 mg PO DAILY 04/07/19 [History] Hydrocodone/Acetaminophen [[place] 5-325] 1 tab PO Q6HR PRN #30 tab 04/15/19 [Rx] Albuterol Nebulized [Ventolin Nebulized] 06/10/19 [History] Pravastatin Sodium [Pravachol] 10 mg PO DAILY 06/10/19 [History] HYDROcodone/APAP 5-325MG [[place] 5-325] 1 tab PO Q4HR PRN #20 tab 06/12/19 [Rx] Sulfamethox-Tmp 800-160Mg [Bactrim DS 800-160 mg] 1 tab PO Q12HR #10 tab 06/12/19 [Rx] Follow up Appointment(s)/Referral(s): Kike Grant DO [Medical Doctor] - 1 Week Activity/Diet/Wound Care/Special Instructions: Diet: Heart healthy Special Instructions: We will call you if your follow-up test shows any evidence of diabetes Orthopedic Postoperative Discharge Instructions Ice & elevate the right hand & wrist. Use norco or [id number] pain medication as directed. No strenuous/forceful use of the hand. No lifting/gripping/pushing/pulling. Ok to use the hand for light activities (eating/dressing/etc). Dressings should be changed daily. Remove dressings to shower - ok to get incision wet and wash with soap and water. Re-cover incision with a dressing until no longer draining. Do not soak incision. No lotions or ointments on incision. Perform finger and wrist [id number] exercises several times daily. No squeeze balls. Call as soon as possible to schedule a follow-up appointment with Dr. Grant to be seen in approximately one week. Pending Studies Pending Results: Final wound and blood cultures pending. A1C pending.
--- NOTE | 2019-06-12 20:13 | P.PN ---
Subjective Progress Note Date: 06/12/19 (delayed charting seen at 1202) Principal diagnosis: right had pain Patient is an 78-year-old male past medical history of COPD, severe osteoarthritis, and dyslipidemia who presented to the hospital at the direction of Dr. Grant. He was seen in the office on 06/10 and noted to have worsening lying of his right hand at the MCP and therefore was brought into the OR for operative I&D for tenosynovitis. He underwent the procedure well without any immediate postoperative complications. Patient seen and examined at bedside. His pain is well controlled today. No chest pain, shortness breath, nausea, vomiting, or diarrhea. Had 2 bowel movements today. No other complaints currently. Asking to be discharged home. Objective - Vital Signs Vital signs: Vital Signs Temp 98.1 F 06/12/19 13:00 Pulse 61 06/12/19 13:00 Resp 17 06/12/19 13:00 BP 123/61 06/12/19 13:00 Pulse Ox 99 06/12/19 13:00 Intake & Output 06/12/19 06/12/19 06/13/19 06:59 18:59 06:59 Intake Total 840 480 Output Total 200 600 Balance 640 -120 Intake: Intake, IV Titration 250 Amount Vancomycin 1,250 mg In 250 Sodium Chloride 0.9% 250 ml @ 125 mls/hr IVPB Q12H [facility] Rx#:[id number] Oral 590 480 Output: Urine 200 600 Other: # Voids 2 # Bowel Movements 2 - Exam General: non toxic, no distress, appears at stated age Derm: Dressing in place over right hand warm, dry Head: atraumatic, normocephalic, symmetric Mouth: no lip lesion, mucus membranes moist Cardiovascular: S1S2 reg, no murmur, positive posterior tibial pulse bilateral, Lungs: CTA bilateral, no rhonchi, no rales , no accessory muscle use Ext: no gross muscle atrophy, no edema, no contractures Neuro: CN II-XI grossly intact, no focal neuro deficits Psych: Alert, oriented, appropriate affect - Labs CBC & Chem 7: 06/10/19 22:56 06/12/19 06:56 Labs: Abnormal Lab Results - Last 24 Hours (Table) 06/11/19 06/12/19 Range/Units 20:13 07:09 POC Glucose (mg/dL) 113 H 106 H (75-99) mg/dL Microbiology - Last 24 Hours (Table) 06/10/19 19:10 Anaerobic Culture - Preliminary Other - Other 06/11/19 15:16 Blood Culture - Preliminary Blood No Growth after 24 hours 06/11/19 15:12 Blood Culture - Preliminary Blood No Growth after 24 hours 06/10/19 19:10 Gram Stain - Final Other - Other Wound Culture - Final Assessment and Plan Assessment: Right hand tenosynovitis -Transitioned to oral Bactrim, Gram stain negative and no aerobic growth for 48 hours, no anaerobes isolated today, blood cultures negative for 24 hours - Monosodium urate crystals noted in synovial fluid. Possible gout versus infection. Doubt infection as white blood cell count was normal, no signs of fever, and negative cultures to date. - Pain control -Able to use walker - Case discussed with Dr. Grant. Probable discharge today with outpatient follow-up. Prescription for Bactrim sent to patient's pharmacy. Hyperglycemia without formal diagnosis of DM, hyperglycemia resolved - SSI - Follow BS - A1C pending HLD - statin COPD without exacerbation - long acting beta agonist and inhaled corticosteroid - prn albuterol Patient medically optimized for discharge. Bactrim added to discharge back. He'll continue to follow with PCP. We Will call patient if hemoglobin A1c is greater then 7. Patient is aware. Number listed on her demographics page verified as the patient's cell phone number and most appropriate way to follow- up. Thank you for allowing us to participate in the care of this pleasant patient. Do not hesitate to contact us with questions. Someone can be reached from the [facility] hospitalist group all hours of the day at [phone] or via Embedly.
[2019-06-12] MEDS ORDERED: VANCOMYCIN TROUGH DUE 1 EACH MISC MISCELLANE ONE (22:00)
--- NOTE | 2019-06-12 22:01 | P.CONS ---
History of Present Illness - Reason for Consult Consult date: 06/12/19 right hand tenosynovitis Requesting physician: Kike Grant - Chief Complaint right hand pain swelling x 2 weeks - History of Present Illness Patient is a 78-year-old male who has been electively admitted hospital by his orthopedic surgeon on 06/10/2019 for worsening pain and swelling to his right wrist and hand area patient symptoms initially started about 2 weeks ago and the patient has been treated conservatively for possible tenosynovitis however the patient pain continued to get worse he describes the pain to be more of a sharp with intensity almost 7-8 out of 10 and no radiation with associated swelling to the significant redness no fever no chills patient was taken to the OR on 06/10/19 and the patient is status post exploration irrigation and debridement of the right hand wrist and extensor tenosynovectomy there was some thick yellow cloudy fluid obtained which has been sent for culture patient treated with IV vancomycin subsequently had blood cultures coming back negative so far and the crystalline came back positive for pseudomonal urate infectious disease was consulted on 06/10/2019 for evaluation however the consult was never called in and I did cloth picker the patient on the list, patient apparently has shown clinical improvement and has been insisting on going home. Review of Systems Positive point has been mentioned in HPI rest of the systems are negative Past Medical History Past Medical History: Cancer, COPD, Hyperlipidemia, Osteoarthritis (OA) Additional Past Medical History / Comment(s): SKIN CANCER History of Any Multi-Drug Resistant Organisms: None Reported Past Surgical History: Appendectomy, Back Surgery, Joint Replacement Additional Past Surgical History / Comment(s): TOTAL RIGHT KNEE, ARTHROSCOPIC RIGHT KNEE, LT ANKLE FUSION, TOTAL RIGHT ANKLE REPLACEMENT, Spinal Fusion Past Anesthesia/Blood Transfusion Reactions: No Reported Reaction Past Psychological History: No Psychological Hx Reported Smoking Status: Former smoker Past Alcohol Use History: Rare Additional Past Alcohol Use History / Comment(s): STARTED SMOKING AT AGE 19 QUIT SMOKING 2012 SMOKED 1/2PPD Past Drug Use History: None Reported - Past Family History Brother(s) Family Medical History: Cancer Additional Family Medical History / Comment(s): "LYMPH NODE CANCER" Mother Family Medical History: Myocardial Infarction ([place]) Father Family Medical History: Myocardial Infarction [place]) Medications and Allergies Home Medications Medication Instructions Recorded Confirmed Type Albuterol Inhaler [Ventolin Hfa 1 - 2 puff INHALATION RT-Q6H PRN 04/07/19 06/10/19 History Inhaler] Aspirin [Adult Low Dose Aspirin EC] 81 mg PO DAILY 04/07/19 06/10/19 History Fluticasone/Salmeterol [Advair 1 inhalation PO BID 04/07/19 06/10/19 History 250-50 Diskus] Montelukast [Singulair] 10 mg PO DAILY 04/07/19 06/10/19 History Hydrocodone/Acetaminophen [Buckner 1 tab PO Q6HR PRN #30 tab 04/15/19 06/10/19 Rx 5-325] Albuterol Nebulized [Ventolin 06/10/19 History Nebulized] Pravastatin Sodium [Pravachol] 10 mg PO DAILY 06/10/19 06/10/19 History HYDROcodone/APAP 5-325MG [Buckner 1 tab PO Q4HR PRN #20 tab 06/12/19 Rx 5-325] Sulfamethox-Tmp 800-160Mg [Bactrim 1 tab PO Q12HR #10 tab 06/12/19 Rx DS 800-160 mg] Allergies Allergy/AdvReac Type Severity Reaction Status Date / Time No Known Allergies Allergy Verified 04/14/19 06:41 Physical Exam Vitals: Vital Signs Temp Pulse Pulse Resp BP Pulse Ox 06/12/19 08:30 68 59 L 18 06/12/19 04:46 97.4 F L 59 L 18 110/51 97 06/12/19 00:00 68 70 18 06/11/19 20:49 97.6 F 70 18 94/50 96 06/11/19 16:40 68 62 18 Intake and Output 06/11/19 06/12/19 06/12/19 22:59 06:59 14:59 Intake Total 840 240 Output Total 800 Balance 40 240 Intake: Intake, IV Titration 250 Amount Vancomycin 1,250 mg In 250 Sodium Chloride 0.9% 250 ml @ 125 mls/hr IVPB Q12H [facility] Rx#:[id number] Oral 590 240 Output: Urine 800 Other: # Voids 1 2 # Bowel Movements 2 GENERAL DESCRIPTION: Elderly male lying in bed, no distress. No tachypnea or accessory muscle of respiration use. HEENT: Shows Pallor , no scleral icterus. Oral mucous membrane is dry. NECK: Trachea central, no thyromegaly. LUNGS: Unlabored breathing. Clear to auscultation anteriorly. No wheeze or crackle. HEART: S1, S2, regular rate and rhythm. ABDOMEN: Soft, no tenderness , guarding or rigidity EXTREMITIES: Right wrist incision is intact with stitches on there is no significant swelling redness or any foul-smelling drainage SKIN: No rash, no masses palpable. NEUROLOGICAL: The patient is awake, alert, oriented x3, mood and affect normal. Results CBC & Chem 7: 06/10/19 22:56 06/12/19 06:56 Labs: Abnormal Lab Results - Last 24 Hours (Table) 06/11/19 06/11/19 06/12/19 Range/Units 17:17 20:13 07:09 POC Glucose (mg/dL) 120 H 113 H 106 H (75-99) mg/dL Microbiology - Last 24 Hours (Table) 06/10/19 19:10 Gram Stain - Preliminary Other - Other Wound Culture - Preliminary Assessment and Plan Assessment: -patient with her right wrist pain and swelling with concern for possible septic tenosynovitis however the patient with no fever or elevated white count and the pseudomonal urate crystals positive likely arthritis and less likely infectious etiology with negative cultures (1) Extensor tenosynovitis of right wrist Status: Acute Code(s): M65.831 - OTHER SYNOVITIS AND TENOSYNOVITIS, RIGHT FOREARM SNOMED Code(s): 324719560 Plan: 1-agree with a short course of oral Bactrim DS on discharge 2-management of underlying possible gouty arthritis per orthopedics and primary care We will follow on clinical condition and cultures to further adjust medication if needed Thank you for this consultation we will follow the patient along with you Time with Patient: Greater than 30
[2019-06-13 10:10] LABS: Hemoglobin A1C 5.6 % (4.0-6.0)
== END 2019-06-12 15:52 | disposition home or self-care (01) ==
LOC: OR 13:53 → 3NMEDONC 19:20 → OR 06-12 15:52
PROVIDERS: ATTEND Orthopaedic Surgery
DX: M65.89 Other synovitis and tenosynovitis, multiple sites (principal); E78.5 Hyperlipidemia, unspecified; H91.90 Unspecified hearing loss, unspecified ear; Z97.3 Presence of spectacles and contact lenses; Z85.828 Personal history of other malignant neoplasm of skin; Z96.651 Presence of right artificial knee joint; Z98.1 Arthrodesis status; J44.9 Chronic obstructive pulmonary disease, unspecified; M19.90 Unspecified osteoarthritis, unspecified site; Z79.891 Long term (current) use of opiate analgesic; Z87.891 Personal history of nicotine dependence; Z80.7 Family history of other malignant neoplasms of lymphoid, hematopoietic and related tissues; Z82.49 Family history of ischemic heart disease and other diseases of the circulatory system; Z79.82 Long term (current) use of aspirin; Z79.51 Long term (current) use of inhaled steroids; Z79.899 Other long term (current) drug therapy
CPT/HCPCS: 94640 ×3; 89060; 80048; 85652; 82565; 84550; 85025; 86140; 87040; 87070; 87205; 87075; 87102; 83036; 25116; J2250; J3370 ×3; J1100; J2405; J2001; J1650 ×2; J3010; J2704

== ENCOUNTER 2020-02-20 14:53 | Observation (INO) | payer MEDICARE ==
[2020-02-20] MEDS ORDERED: SODIUM CHLORIDE 0.9% 1,000 ML IV STA (15:09)
--- NOTE | 2020-02-20 15:20 | ED ---
General Adult HPI - General Chief complaint: Neuro Symptoms/Deficit Stated complaint: Poss Stroke Time Seen by Provider: 02/20/20 15:02 Source: patient, EMS, RN notes reviewed, old records reviewed Mode of arrival: EMS Limitations: no limitations - History of Present Illness Initial comments: 79-year-old male presenting for evaluation of slurred speech which began at 11 AM this morning. Patient is presenting for evaluation at 3 PM. His symptoms have completely resolved. He states they lasted about 3 minutes. He did have a second episode where he thought his speech may have been somewhat slurred however this resolved also and just a minute or 2. He has no previous history of CVA. No history of hypertension or diabetes. Patient denies focal numbness or weakness. Denies headache. He states he has had some visual blurring of the right eye which is been present for several weeks. Additionally he is currently in a fasted state because he is planned to have upper endoscopy and colonoscopy tomorrow. - Related Data Home Medications Medication Instructions Recorded Confirmed Fluticasone/Salmeterol [Advair 1 puff INHALATION RT-BID 04/07/19 02/20/20 250-50 Diskus] Albuterol Nebulized [Ventolin 2.5 mg INHALATION RT-QID PRN 06/10/19 02/20/20 Nebulized] Pravastatin Sodium [Pravachol] 10 mg PO QAM 06/10/19 02/20/20 Cholecalciferol [Vitamin D3 (25 2,000 mg PO DAILY 02/17/20 02/20/20 Mcg = 1000 Iu)] Albuterol Sulfate [Ventolin HFA] 1 puff INHALATION RT-Q4H PRN 02/20/20 02/20/20 Allergies Allergy/AdvReac Type Severity Reaction Status Date / Time No Known Allergies Allergy Verified 02/20/20 15:55 Review of Systems ROS Statement: Those systems with pertinent positive or pertinent negative responses have been documented in the HPI. ROS Other: All systems not noted in ROS Statement are negative. Past Medical History Past Medical History: Cancer, COPD, Hyperlipidemia, Osteoarthritis (OA), Skin Disorder Additional Past Medical History / Comment(s): SKIN CANCER. GOUT. PSORIASIS (CLEARED UP AT THIS DATE). History of Any Multi-Drug Resistant Organisms: None Reported Past Surgical History: Appendectomy, Back Surgery, Joint Replacement Additional Past Surgical History / Comment(s): RIGHT WRIST SURGERY. BILATERAL CATARACTS. TOTAL RIGHT KNEE, ARTHROSCOPIC RIGHT KNEE, LT ANKLE FUSION, TOTAL RIGHT ANKLE REPLACEMENT, Spinal Fusion Past Anesthesia/Blood Transfusion Reactions: No Reported Reaction Past Psychological History: No Psychological Hx Reported Smoking Status: Former smoker Past Alcohol Use History: Rare Past Drug Use History: None Reported - Past Family History Brother(s) Family Medical History: Cancer Additional Family Medical History / Comment(s): "LYMPH NODE CANCER" Mother Family Medical History: Myocardial Infarction ([place]) Father Family Medical History: Myocardial Infarction ([place]) General Exam Limitations: no limitations General appearance: alert, in no apparent distress Head exam: Present: atraumatic, normocephalic Eye exam: Present: normal appearance, PERRL ENT exam: Present: mucous membranes dry Neck exam: Present: normal inspection. Absent: tenderness, meningismus Respiratory exam: Present: decreased breath sounds. Absent: respiratory distres s Cardiovascular Exam: Present: regular rate, normal rhythm GI/Abdominal exam: Present: soft. Absent: distended, tenderness, guarding Extremities exam: Present: normal inspection, normal capillary refill. Absent: pedal edema Neurological exam: Present: alert, oriented X3, CN II-XII intact, other (NIH is 0 at the time of initial evaluation). Absent: motor sensory deficit Psychiatric exam: Present: normal affect, normal mood Skin exam: Present: warm, dry, intact. Absent: cyanosis, diaphoretic Course Vital Signs 02/20/20 02/20/20 14:56 15:01 Temperature 97.9 F Pulse Rate 90 86 Respiratory 18 18 Rate Blood Pressure 143/68 137/64 O2 Sat by Pulse 100 100 Oximetry - Reevaluation(s) Reevaluation #1: 02/20/20 15:59 Patient will be admitted for TIA evaluation. Patient is seen by Dr. Huff in the emergency department. Reevaluation #2: 02/20/20 15:59 NIH of 0 EKG Findings - EKG Comments: EKG Findings:: EKG: Normal sinus rhythm, rate of 86, WV interval 174, QRS duration 86, QTC 423, no ST segment elevation. Medical Decision Making - Medical Decision Making 79-year-old male presenting with an episode of dysarthria. Initial evaluation, NIH of 0, clear speech, no focal findings. Head CT is performed which shows age-related changes, no to intracranial hemorrhage or mass effect. Patient has a CBC showing mild anemia, no other acute abnormalities, normal electrolytes. EKG is sinus rhythm. Chest x-ray negative for acute cardiopulmonary disease. Patient reevaluated while in the emergency department, NIH of 0, has been admitted to Dr. Huff who is able to see the patient. Neurology has been consult, echo and carotid studies have been ordered. - Lab Data Result diagrams: 02/20/20 15:13 02/20/20 15:13 Lab Results 02/20/20 02/20/20 02/20/20 Range/Units 15:13 15:13 15:13 WBC 9.8 (3.8-10.6) k/uL RBC 3.71 L (4.30-5.90) m/uL Hgb 10.5 L (13.0-17.5) gm/dL Hct 33.0 L (39.0-53.0) % MCV 89.0 (80.0-100.0) fL MCH 28.2 (25.0-35.0) pg MCHC 31.7 (31.0-37.0) g/dL RDW 14.4 (11.5-15.5) % Plt Count 404 (150-450) k/uL Neutrophils % 78 % Lymphocytes % 9 % Monocytes % 9 % Eosinophils % 0 % Basophils % 1 % Neutrophils # 7.6 (1.3-7.7) k/uL Lymphocytes # 0.9 L (1.0-4.8) k/uL Monocytes # 0.8 (0-1.0) k/uL Eosinophils # 0.0 (0-0.7) k/uL Basophils # 0.1 (0-0.2) k/uL Hypochromasia Slight PT 11.0 (9.0-12.0) sec INR 1.1 (<1.2) APTT 27.2 (22.0-30.0) sec Sodium 134 L (137-145) mmol/L Potassium 4.1 (3.5-5.1) mmol/L Chloride 98 (98-107) mmol/L Carbon Dioxide 24 (22-30) mmol/L Anion Gap 12 mmol/L BUN 14 (9-20) mg/dL Creatinine 0.81 (0.66-1.25) mg/dL Est GFR (CKD-EPI)AfAm >90 (>60 ml/min/1.73 sqM) Est GFR (CKD-EPI)NonAf 83 (>60 ml/min/1.73 sqM) Glucose 159 H (74-99) mg/dL Calcium 8.9 (8.4-10.2) mg/dL Total Bilirubin 0.5 (0.2-1.3) mg/dL AST 28 (17-59) U/L ALT 19 (4-49) U/L Alkaline Phosphatase 100 (38-126) U/L Troponin I (0.000-0.034) ng/mL Total Protein 6.7 (6.3-8.2) g/dL Albumin 3.3 L (3.5-5.0) g/dL 02/20/20 Range/Units 15:13 WBC (3.8-10.6) k/uL RBC (4.30-5.90) m/uL Hgb (13.0-17.5) gm/dL Hct (39.0-53.0) % MCV (80.0-100.0) fL MCH (25.0-35.0) pg MCHC (31.0-37.0) g/dL RDW (11.5-15.5) % Plt Count (150-450) k/uL Neutrophils % % Lymphocytes % % Monocytes % % Eosinophils % % Basophils % % Neutrophils # (1.3-7.7) k/uL Lymphocytes # (1.0-4.8) k/uL Monocytes # (0-1.0) k/uL Eosinophils # (0-0.7) k/uL Basophils # (0-0.2) k/uL Hypochromasia PT (9.0-12.0) sec INR (<1.2) APTT (22.0-30.0) sec Sodium (137-145) mmol/L Potassium (3.5-5.1) mmol/L Chloride (98-107) mmol/L Carbon Dioxide (22-30) mmol/L Anion Gap mmol/L BUN (9-20) mg/dL Creatinine (0.66-1.25) mg/dL Est GFR (CKD-EPI)AfAm (>60 ml/min/1.73 sqM) Est GFR (CKD-EPI)NonAf (>60 ml/min/1.73 sqM) Glucose (74-99) mg/dL Calcium (8.4-10.2) mg/dL Total Bilirubin (0.2-1.3) mg/dL AST (17-59) U/L ALT (4-49) U/L Alkaline Phosphatase (38-126) U/L Troponin I <0.012 (0.000-0.034) ng/mL Total Protein (6.3-8.2) g/dL Albumin (3.5-5.0) g/dL Critical Care Time Critical Care Time: Yes Total Critical Care Time: 35 Disposition Clinical Impression: Transient cerebral ischemia Disposition: ADMITTED IP TO THIS [facility] Condition: Stable Is patient prescribed a controlled substance at d/c from ED?: No Referrals: Maximo Weber DO [Primary Care Provider] - 1-2 days Decision to Admit Reason: Admit from EC Decision Date: 02/20/20 Decision Time: 16:01
[2020-02-20 15:31] LABS: Basophils # (A) 0.1 k/uL (0-0.2); Basophils % (A) 1 %; Eosinophils % (A) 0 %; HGB 10.5 gm/dL (13.0-17.5); Hypochromasia Slight; Lymphocytes # (A) 0.9 k/uL (1.0-4.8); Lymphocytes % (A) 9 %; MCH 28.2 pg (25.0-35.0); MCHC 31.7 g/dL (31.0-37.0); Mean Platelet Volume 7.1; Monocytes # (A) 0.8 k/uL (0-1.0); Monocytes % (A) 9 %; Neutrophils # (A) 7.6 k/uL (1.3-7.7); Neutrophils % (A) 78 %; Platelet Count 404 k/uL (150-450); RBC 3.71 m/uL (4.30-5.90); RDW 14.4 % (11.5-15.5); WBC 9.8 k/uL (3.8-10.6)
--- NOTE | 2020-02-20 15:35 | CT ---
EXAMINATION TYPE: CT brain wo con DATE OF EXAM: 02/20/2020 COMPARISON: None HISTORY: episode of slurred speech CT DLP: 1099.[address] of the brain was performed. The ventricles, basal cisterns and sulci overlying the cerebral convexities demonstrate mild enlargem ent. There is no evidence for intracranial hemorrhage or sulcal effacement. There is decreased attenuation about the periventricular white matter and deep white matter of both c erebral hemispheres, compatible with chronic small vessel ischemia. Differential diagnosis does inclu de demyelination. No mass effects are seen.No midline shift. Osseous calvarium is intact. If symptoms persist consider MRI. IMPRESSION: 1. Age related atrophic and chronic small vessel ischemic change without acute intracranial process s een at this time.
[2020-02-20 15:38] LABS: ALT 19 U/L (4-49); AST 28 U/L (17-59); African American GFR (CKD) >90 (>60 ml/min/1.73 sqM); Albumin 3.3 g/dL (3.5-5.0); Alkaline Phosphatase 100 U/L (38-126); Anion Gap 12 mmol/L; Blood Urea Nitrogen 14 mg/dL (9-20); Calcium 8.9 mg/dL (8.4-10.2); Carbon Dioxide 24 mmol/L (22-30); Chloride 98 mmol/L (98-107); Glucose 159 mg/dL (74-99); Non-African American GFR(CKD) 83 (>60 ml/min/1.73 sqM); Potassium 4.1 mmol/L (3.5-5.1); Sodium 134 mmol/L (137-145); Total Bilirubin 0.5 mg/dL (0.2-1.3); Total Protein 6.7 g/dL (6.3-8.2)
--- NOTE | 2020-02-20 15:39 | XR ---
EXAMINATION TYPE: XR chest 2V DATE OF EXAM: 02/20/2020 COMPARISON: NONE HISTORY: Shortness of breath TECHNIQUE: Frontal and lateral views of the chest are obtained. FINDINGS: Scattered senescent parenchymal changes noted. Hyperinflation compatible with COPD. No evidence for infiltrate. No evidence for atelectasis. Heart size is stable. Mediastinal structures are stable and grossly unremarkable. No evidence for hilar prominence. Degenerative changes dorsal spine. IMPRESSION: 1. No evidence for acute pulmonary disease.
[2020-02-20 15:41] LABS: INR 1.1 (<1.2)
[2020-02-20 15:42] LABS: Partial Thromboplastin Time 27.2 sec (22.0-30.0)
[2020-02-20] MEDS ORDERED: ASPIRIN 325 MG TAB PO STA (15:56)
[2020-02-20] MEDS: SODIUM CHLORIDE 0.9% 1,000 ML IV SCH (16:37)
--- NOTE | 2020-02-20 16:38 | US ---
EXAMINATION TYPE: US carotid duplex BILAT DATE OF EXAM: 02/20/2020 COMPARISON: NONE CLINICAL HISTORY: Stenosis. No HTN, no hx TIA EXAM MEASUREMENTS: RIGHT: Peak Systolic Velocity (PSV) cm/sec ----- Right CCA: 65.3 ----- Right ICA: 108.1 ----- Right ECA: 103.2 ICA/CCA ratio: 1.7 RIGHT: End Diastole cm/sec ----- Right CCA: 8.6 ----- Right ICA: 28.9 ----- Right ECA: 0.0 LEFT: Peak Systolic Velocity (PSV) cm/sec ----- Left CCA: 81.4 ----- Left ICA: 127.9 ----- Left ECA: 85.3 ICA/CCA ratio: 1.6 LEFT: End Diastole cm/sec ----- Left CCA: 15.4 ----- Left ICA: 33.3 ----- Left ECA: 5.0 VERTEBRALS (direction of flow): Right Vertebral: Antegrade Left Vertebral: Antegrade Rhythm: Arrhythmia Bilateral wall thickening. Plaque visualized in bilateral bulbs, Right CCA and right proximal ICA. No significant stenosis. Elevated left proximal ICA velocity. IMPRESSION: There is antegrade flow in the vertebral arteries. The images and measurements suggest 50-70% stenosi s in both internal carotid arteries. Moderate bilateral plaque formation. Criteria for Assigning % of Stenosis / Diameter reduction (Estimation based on the indirect measurements of the internal carotid artery velocities (ICA PSV). 1. Normal (no stenosis)=ICA PSV < 125 cm/s: ratio < 2.0: ICA EDV<40 cm/s. 2. Less than 50% stenosis=ICA PSV < 125 cm/s: ratio < 2.0: ICA EDV<40 cm/s. 3. 50 to 69% stenosis=ICA PSV of 125 to 230 cm/s: ration 2.0 ? 4.0: ICA EDV 40-100 cm/s. 4. Greater than 70% stenosis to near occlusion= ICA PSV > 230 cm/s: ratio > 4.0: ICA EDV > 100 cm/s. 5. Near occlusion= ICA PSV velocities may be low or undetectable: variable ratio and ICA EDV. 6. Total occlusion=unable to detect flow.
[2020-02-20] MEDS ORDERED: ALBUTEROL NEBULIZED 2.5 MG/3 ML INHALATION PRN (19:34)
[2020-02-20] MEDS ORDERED: ALBUTEROL HFA INHALER INHALATION PRN (19:34)
[2020-02-20] MEDS: SYMBICORT 160-4.5 MCG INHALER INHALATION SCH (20:22)
[2020-02-20] MEDS: ATORVASTATIN 80 MG TAB PO SCH (20:24)
--- NOTE | 2020-02-20 21:55 | P.CNNES ---
History of Present Illness Consult date: 02/20/20 Requesting physician: Terry Villagomez Reason for Consult: TIA History of Present Illness: Patient is a 79-year-old male, who arrived to the hospital today at 3 PM for recurrent episodes of slurred speech. Patient states that he was scheduled for colonoscopy and EGD tomorrow on 02/21/2020. He had stopped taking his aspirin 81 mg which he has been taking for years and the last dose he took was on , 02/16/2020. Patient states that today on Thursday, he moved his head certain way, and all of a sudden he had a pain in the neck that shot up and back of the head. He then had an episode of slurred speech, that lasted for no more than a minute. He called ambulance and had 2 more episodes of slurred speech lasting for a minute each. Patient denied any focal numbness tingling weakness, loss of vision or double vision. Patient says that he has been having some blurred vision in the right eye for around last 1 month. Patient's vitals on arrival showed that pressure 143/68, pulse rate 90, temperature 97.9. Patient underwent CT head showed age-related atrophic and chronic small vessel ischemic changes without acute intracranial process. Chest x-ray showed no evidence of acute pulmonary disease. EKG shows normal sinus rhythm. Carotid Doppler showed antegrade flow in vertebral arteries. The images in measurements suggest 50-70% stenosis in both ICA. Moderate bilateral plaque formation. Blo od test shows normal WBC hemoglobin 10.5, platelets 404. PT/PTT normal. Sodium 134 potassium 4.1, BUN 14, creatinine 0.81. Hepatic panel normal. Last hemoglobin A1c 5.6 on 06/12/2019. Patient states he has smoked half pack per day for about 50-60 years, quit 5 years ago. Lately he has been reverting to smoking about 1-2 cigarettes per day. He denies any diabetes hypertension or alcohol use. Patient has severe arthritis, had bilateral ankle fusion, right knee surgery. He has low back fus ion 12 years ago. Review of Systems As per history of present illness. All other 14 point of review of systems unremarkable. Denies any chest pain shortness of breath wheezing or cough. He has been having some abdominal pain for which he is scheduled for upper GI. Melissa glover has significant arthritis, aches and pain in multiple joints. Past Medical History Past Medical History: Cancer, COPD, Hyperlipidemia, Osteoarthritis (OA), Skin Disorder Additional Past Medical History / Comment(s): SKIN CANCER. GOUT. PSORIASIS (CLEARED UP AT THIS DATE). History of Any Multi-Drug Resistant Organisms: None Reported Past Surgical History: Appendectomy, Back Surgery, Joint Replacement Additional Past Surgical History / Comment(s): RIGHT WRIST SURGERY. BILATERAL CATARACTS. TOTAL RIGHT KNEE, ARTHROSCOPIC RIGHT KNEE, LT ANKLE FUSION, TOTAL RIGHT ANKLE REPLACEMENT, Spinal Fusion Past Anesthesia/Blood Transfusion Reactions: No Reported Reaction Past Psychological History: No Psychological Hx Reported Smoking Status: Former smoker Past Alcohol Use History: Rare Additional Past Alcohol Use History / Comment(s): STARTED SMOKING AT AGE 19 QUIT SMOKING 2012 SMOKED 1/2PPD Past Drug Use History: None Reported - Past Family History Brother(s) Family Medical History: Cancer Additional Family Medical History / Comment(s): "LYMPH NODE CANCER" Mother Family Medical History: Myocardial Infarction ([place]) Father Family Medical History: Myocardial Infarction ([place]) Medications and Allergies Home Medications Medication Instructions Recorded Confirmed Type Albuterol Nebulized [Ventolin 2.5 mg INHALATION RT-QID PRN 06/10/19 02/20/20 History Nebulized] Pravastatin Sodium [Pravachol] 10 mg PO QAM 06/10/19 02/20/20 History Cholecalciferol [Vitamin D3 (25 2,000 mg PO DAILY 02/17/20 02/20/20 History Mcg = 1000 Iu)] Albuterol Sulfate [Ventolin HFA] 1 puff INHALATION RT-Q4H PRN 02/20/20 02/20/20 History Fluticasone/Salmeterol [Advair 1 puff INHALATION RT-BID 02/20/20 02/20/20 Histo ry 500-50 Diskus] Allergies Allergy/AdvReac Type Severity Reaction Status Date / Time No Known Allergies Allergy Verified 02/20/20 15:55 Physical Examination - Vital Signs Vital Signs: Vital Signs Temp Pulse Resp BP Pulse Ox 02/20/20 16:57 97.9 F 77 18 131/64 100 02/20/20 16:30 81 18 131/66 99 02/20/20 15:01 97.9 F 86 18 137/64 100 02/20/20 14:56 90 18 143/68 100 Intake and Output 02/20/20 02/20/20 02/20/20 06:59 14:59 22:59 Intake Total 1000 Balance 1000 Intake: IV 1000 Sodium Chloride 0.9% 1, 1000 000 ml @ 999 mls/hr IV . Q1H1M [facility] Rx#:[id number] Other: Weight 65.771 kg 65.771 kg On examination patient is an elderly male, in no acute distress. He is alert and awake fully oriented. Speech is mildly dysarthric but no aphasia. Attention, concentration and fund of knowledge is adequate. On cranial nerve exam. Pupils are round and reactive to light, visual strong are full on confrontation, extraocular muscles are intact with no nystagmus. Face is symmetric, tongue protrudes to the midline. Palatal elevation and sensation normal. Hearing is slightly decreased and shoulder shrug normal. On muscle strength testing there is no pronator drift and the strength is normal in arms and legs distally and proximally reflexes are diminished and plantars are downgoing. Sensory touch is equal with no neglect. No ataxia for [id number] testing. Tone and bulk of muscles normal. Gait deferred. No obvious bruit, S1 and S2 audible. Peripheral pulses present. Abdomen is soft. Chest is clear. Results - Laboratory Findings CBC and BMP: 02/20/20 15:13 02/20/20 15:13 Abnormal Lab Findings: Abnormal Labs 02/20/20 02/20/20 15:13 15:13 RBC 3.71 L Hgb 10.5 L Hct 33.0 L Lymphocytes # 0.9 L Sodium 134 L Glucose 159 H Albumin 3.3 L Assessment and Plan Assessment: * Recurrent TIAs manifesting with transient speech difficulty lasting for less than a minute. * Bilateral moderate ICA stenosis * History of tobacco use * Unexplained weight loss. Patient in the process of getting EGD and colonoscopy. Plan: * Resume aspirin 325 mg daily. * Recommend high-dose statins. Patient has been started on Lipitor 80 mg daily. * Patient has moderate bilateral ICA stenosis noted on carotid Doppler. Patient follows up with Dr. Prado, vascular surgery as outpatient. * Fasting a.m. lipid panel * Await 2-D echo. * Complete tobacco cessation. * Patient had unexplained weight loss and abdominal pain. Patient is already in the process of getting EGD and colonoscopy (scheduled for tomorrow as outpatient). I would suggest patient would have to undergo these procedures while being on antiplatelet medication, if possible.
--- NOTE | 2020-02-20 22:11 | P.HPIM ---
History of Present Illness This is a pleasant 79-year-old male with multiple medical problems including hyperlipidemia, osteoarthritis, COPD, gout, his recently scheduled for EGD/colonoscopy supposedly today for his problem of weight loss. Presents because of 2 episodes of slurred speech that lasted a few minutes. Also is complaining of from slight right-sided blurred vision on the right side for about 2 weeks. However he denies headache, no weakness or numbness in the extremities. No difficulty swallowing. He denies smoking, alcohol or illicit drugs. Vital signs were unremarkable including CBC, BMP, liver enzymes. EKG showing normal sinus rhythm at [address]-T changes and QTC 423. Chest x-ray: No acute process. CT of the brain: No acute process by Radiologist as well. Age-related atrophic Review of Systems CONSTITUTIONAL: No fever, no malaise, no fatigue. HEENT: No recent visual problems or hearing problems. Denied any sore throat. CARDIOVASCULAR: No orthopnea, PND, no palpitations, no syncope. PULMONARY: No shortness of breath, no cough, no hemoptysis. GASTROINTESTINAL: No diarrhea, no nausea, no vomiting, no abdominal pain. Normoactive bowel sounds. NEUROLOGICAL: No headaches, no weakness, no numbness. HEMATOLOGICAL: Denies any bleeding or petechiae. GENITOURINARY: Denies any burning micturition, frequency, or urgency. MUSCULOSKELETAL/RHEUMATOLOGICAL: Denies any joint pain, swelling, or any muscle pain. ENDOCRINE: Denies any polyuria or polydipsia. Past Medical History Past Medical History: Cancer, COPD, Hyperlipidemia, Osteoarthritis (OA), Skin Disorder Additional Past Medical History / Comment(s): SKIN CANCER. GOUT. PSORIASIS (CLEARED UP AT THIS DATE). History of Any Multi-Drug Resistant Organisms: None Reported Past Surgical History: Appendectomy, Back Surgery, Joint Replacement Additional Past Surgical History / Comment(s): RIGHT WRIST SURGERY. BILATERAL CATARACTS. TOTAL RIGHT KNEE, ARTHROSCOPIC RIGHT KNEE, LT ANKLE FUSION, TOTAL RIGHT ANKLE REPLACEMENT, Spinal Fusion Past Anesthesia/Blood Transfusion Reactions: No Reported Reaction Past Psychological History: No Psychological Hx Reported Smoking Status: Former smoker Past Alcohol Use History: Rare Additional Past Alcohol Use History / Comment(s): STARTED SMOKING AT AGE 19 QUIT SMOKING 2013 SMOKED 1/2PPD Past Drug Use History: None Reported - Past Family History Brother(s) Family Medical History: Cancer Additional Family Medical History / Comment(s): "LYMPH NODE CANCER" Mother Family Medical History: Myocardial Infarction ([place]) Father Family Medical History: Myocardial Infarction ([place]) Medications and Allergies Home Medications Medication Instructions Recorded Confirmed Type Albuterol Nebulized [Ventolin 2.5 mg INHALATION RT-QID PRN 06/10/19 02/20/20 History Nebulized] Pravastatin Sodium [Pravachol] 10 mg PO QAM 06/10/19 02/20/20 History Cholecalciferol [Vitamin D3 (25 2,000 mg PO DAILY 02/17/20 02/20/20 History Mcg = 1000 Iu)] Albuterol Sulfate [Ventolin HFA] 1 puff INHALATION RT-Q4H PRN 02/20/20 02/20/20 History Fluticasone/Salmeterol [Advair 1 puff INHALATION RT-BID 02/20/20 02/20/20 History 500-50 Diskus] Allergies Allergy/AdvReac Type Severity Reaction Status Date / Time No Known Allergies Allergy Verified 02/20/20 15:55 Physical Exam Vitals: Vital Signs Temp Pulse Pulse Resp BP BP Pulse Ox 02/20/20 21:00 97.4 F L 77 18 122/57 96 02/20/20 16:57 97.9 F 77 18 131/64 100 02/20/20 16:30 81 18 131/66 99 02/20/20 15:01 97.9 F 86 18 137/64 100 02/20/20 14:56 90 18 143/68 100 Intake and Output 02/20/20 02/20/20 02/20/20 06:59 14:59 22:59 Intake Total 1000 Balance 1000 Intake: IV 1000 Sodium Chloride 0.9% 1, 1000 000 ml @ 999 mls/hr IV . Q1H1M STA Rx#:[id number] Other: Voiding Method Toilet # Voids 1 Weight 65.771 kg 65.771 kg -GENERAL: The patient is alert and oriented x3, not in any acute distress. Pale and thin body habitus HEENT: Pupils are round and equally reacting to light. EOMI. No scleral icterus. No conjunctival pallor. Normocephalic, atraumatic. No pharyngeal erythema. No thyromegaly. CARDIOVASCULAR: S1 and S2 present. No murmurs, rubs, or gallops. PULMONARY: Chest is clear to auscultation, no wheezing or crackles. ABDOMEN: Soft, nontender, nondistended, normoactive bowel sounds. No palpable organomegaly. MUSCULOSKELETAL: No joint swelling or deformity. EXTREMITIES: No cyanosis, clubbing, or pedal edema. -NEUROLOGICAL: Cranial nerves are grossly intact, slightly slurred speech. No weakness in extremity, no loss of sensation or numbness SKIN: No rashes. No petechiae Results CBC & Chem 7: 02/20/20 15:13 02/20/20 15:13 Labs: Abnormal Lab Results - Last 24 Hours (Table) 02/20/20 02/20/20 Range/Units 15:13 15:13 RBC 3.71 L (4.30-5.90) m/uL Hgb 10.5 L (13.0-17.5) gm/dL Hct 33.0 L (39.0-53.0) % Lymphocytes # 0.9 L (1.0-4.8) k/uL Sodium 134 L (137-145) mmol/L Glucose 159 H (74-99) mg/dL Albumin 3.3 L (3.5-5.0) g/dL Thrombosis Risk Factor Assmnt - Choose All That Apply Any of the Below Risk Factors Present?: Yes Each Factor Represents 1 point: Abnormal pulmonary function (COPD) Other Risk Factors: Yes Each Risk Factor Represents 3 Points: Age 75 years or older Thrombosis Risk Factor Assessment Total Risk Factor Score: 4 Thrombosis Risk Factor Assessment Level: Moderate Risk Assessment and Plan Assessment: Possible TIA with 2 episodes of slurred speech Weight loss, patient workup was initiated as an outpatient and she supposed to get EGD/colonoscopy today Generalized weakness Hyperlipidemia COPD: an active issue Gout History of Tenosynovitis Plan: This is a pleasant 49 years old male who presents with possible TIA. Continue with aspirin, neurology consult, check echocardiogram Labs and medication were reviewed.. Continue same treatment. Continue with symptomatic treatment. Resume home medication. Monitor lytes and vitals. DVT and GI prophylaxis. Further recommendations of the clinical course of the patient DVT prophylaxis: Subcutaneous heparin GI Prophylaxis: Pepcid PT/OT: Pending Prognosis is guarded
[2020-02-20] MEDS: HEPARIN SODIUM,PORCINE 5,000 UNIT/ML 1 ML VIAL SQ SCH (22:25)
[2020-02-21] MEDS: SODIUM CHLORIDE 0.9% 1,000 ML IV SCH ×2 (02:45→15:52)
[2020-02-21 06:47] LABS: Cholesterol 119 mg/dL (<200); HDL Cholesterol 23 mg/dL (40-60); LDL Cholesterol,Calculated 79 mg/dL (0-99); Triglycerides 83 mg/dL (<150)
[2020-02-21] MEDS: SYMBICORT 160-4.5 MCG INHALER INHALATION SCH ×2 (07:33→20:03)
--- NOTE | 2020-02-21 08:55 | P.PN ---
Subjective This is a pleasant 79-year-old male with multiple medical problems including hyperlipidemia, osteoarthritis, COPD, gout, his recently scheduled for EGD/colonoscopy supposedly today for his problem of weight loss. Presents because of 2 episodes of slurred speech that lasted a few minutes. Also is complaining of from slight right-sided blurred vision on the right side for about 2 weeks. However he denies headache, no weakness or numbness in the extremities. No difficulty swallowing. He denies smoking, alcohol or illicit drugs. Vital signs were unremarkable including CBC, BMP, liver enzymes. EKG showing normal sinus rhythm at [address]-T changes and QTC 423. Chest x-ray: No acute process. CT of the brain: No acute process by Radiologist as well. Age-related atrophic 02/21/2020 Patient is awake, no more slurred speech, no dyspnea at rest, patient sitting in bed most of the time. He has neck pain but no headache, and very mild abdominal discomfort but no chest pain. He is hemodynamically stable. Neurology input is appreciated, echocardiogram is pending. Carotid duplex showing bilateral internal carotid artery stenosis with 50-70%, vascular surgery team consulted He remains on aspirin 325 mg, and without normal saline to 75 mL/h. Patient supposed to get elective EGD/colonoscopy as an outpatient today for his weight loss however prefer to hold off that for now until further workup is done Review of Systems CONSTITUTIONAL: No fever, no malaise, no fatigue. HEENT: No recent visual problems or hearing problems. Denied any sore throat. CARDIOVASCULAR: No orthopnea, PND, no palpitations, no syncope. PULMONARY: No shortness of breath, no cough, no hemoptysis. GASTROINTESTINAL: No diarrhea, no nausea, no vomiting, no abdominal pain. Normoactive bowel sounds. NEUROLOGICAL: No headaches, no weakness, no numbness. HEMATOLOGICAL: Denies any bleeding or petechiae. GENITOURINARY: Denies any burning micturition, frequency, or urgency. MUSCULOSKELETAL/RHEUMATOLOGICAL: Denies any joint pain, swelling, or any muscle pain. ENDOCRINE: Denies any polyuria or polydipsia. Active Medications Generic Name Dose Route Start Last Admin Trade Name Freq PRN Reason Stop Dose Admin Albuterol Sulfate 2.5 mg 02/20/20 19:34 Ventolin Nebulized INHALATION RT-QID PRN Shortness Of Breath Aspirin 325 mg 02/21/20 15:00 Aspirin PO DAILY [facility] Atorvastatin Calcium 80 mg 02/20/20 21:00 02/20/20 20:24 Lipitor PO 80 mg HS EVELIN Administration Budesonide/Formoterol Fumarate 2 puff 02/20/20 20:00 02/21/20 07:33 Symbicort 160-4.5 Mcg Inhaler INHALATION 2 puff RT-BID EVELIN Administration Cholecalciferol 2,000 unit 02/21/20 09:00 Vitamin D3 (25 Mcg = 1000 Iu) PO DAILY [facility] Famotidine 20 mg 02/21/20 09:00 Pepcid IV Q12HR EVELIN Heparin Sodium (Porcine) 5,000 unit 02/20/20 22:15 02/20/20 22:25 Heparin SQ 5,000 unit Q12HR EVELIN Administration Sodium Chloride 1,000 mls @ 75 mls/hr 02/20/20 16:00 02/21/20 02:45 Saline 0.9% IV 100 mls/hr .[id number] EVELIN Administration Objective - Vital Signs Vital signs: Vital Signs Temp 97.4 F L 02/21/20 08:17 Pulse 69 02/21/20 08:17 Resp 20 02/21/20 08:17 BP 139/68 02/21/20 08:17 Pulse Ox 96 02/21/20 08:17 Intake & Output 02/20/20 02/21/20 02/21/20 18:59 06:59 18:59 Intake Total 1000 Output Total 625 Balance 1000 -625 Weight 65.771 kg Intake: IV 1000 Sodium Chloride 0.9% 1, 1000 000 ml @ 999 mls/hr IV . Q1H1M STA Rx#:[id number] Output: Urine 625 Other: Voiding Method Toilet # Voids 1 - Exam GENERAL: The patient is alert and oriented x3, not in any acute distress. Well developed, well nourished. HEENT: Pupils are round and equally reacting to light. EOMI. No scleral icterus. No conjunctival pallor. Normocephalic, atraumatic. No pharyngeal erythema. No thyromegaly. CARDIOVASCULAR: S1 and S2 present. No murmurs, rubs, or gallops. PULMONARY: Chest is clear to auscultation, no wheezing or crackles. ABDOMEN: Soft, nontender, nondistended, normoactive bowel sounds. No palpable organomegaly. -MUSCULOSKELETAL: No joint swelling or deformity. Neck tenderness posteriorly EXTREMITIES: No cyanosis, clubbing, or pedal edema. NEUROLOGICAL: Gross neurological examination did not reveal any focal deficits. SKIN: No rashes. no petechiae. - Labs CBC & Chem 7: 02/20/20 15:13 02/20/20 15:13 Labs: Abnormal Lab Results - Last 24 Hours (Table) 02/20/20 02/20/20 02/21/20 Range/Units 15:13 15:13 05:53 RBC 3.71 L (4.30-5.90) m/uL Hgb 10.5 L (13.0-17.5) gm/dL Hct 33.0 L (39.0-53.0) % Lymphocytes # 0.9 L (1.0-4.8) k/uL Sodium 134 L (137-145) mmol/L Glucose 159 H (74-99) mg/dL Albumin 3.3 L (3.5-5.0) g/dL HDL Cholesterol 23 L (40-60) mg/dL Assessment and Plan Assessment: Possible TIA with 2 episodes of slurred speech bilateral internal carotid stenosis 50-70% Weight loss, patient workup was initiated as an outpatient and she supposed to get EGD/colonoscopy today Generalized weakness Hyperlipidemia COPD: an active issue Gout History of Tenosynovitis Plan: This is a pleasant 49 years old male who presents with possible TIA. Continue with aspirin, follow-up recommendation by neurology consult, check echocardiogram. Consult vascular surgery Labs and medication were reviewed.. Continue same treatment. Continue with symptomatic treatment. Resume home medication. Monitor lytes and vitals. DVT and GI prophylaxis. Further recommendations of the clinical course of the patient DVT prophylaxis: Subcutaneous heparin GI Prophylaxis: Pepcid PT/OT: Pending Prognosis is guarded
[2020-02-21] MEDS ORDERED: FAMOTIDINE 20 MG/2 ML VIAL IV SCH (09:00)
[2020-02-21] MEDS ORDERED: PRAVASTATIN SODIUM 10 MG PO SCH (09:00)
[2020-02-21] MEDS: HEPARIN SODIUM,PORCINE 5,000 UNIT/ML 1 ML VIAL SQ SCH ×2 (09:20→20:21)
[2020-02-21] MEDS: CHOLECALCIFEROL 1,000 UNIT TAB PO SCH (09:20)
--- NOTE | 2020-02-21 12:13 | ECHOF ---
Referral Reason:Thrombus MEASUREMENTS -------- HEIGHT: 182.9 cm WEIGHT: 65.8 kg BP: IVSd: 0.9 cm (0.6 - 1.1) LVIDd: 3.5 cm (3.9 - 5.3) LVPWd: 1.3 cm (0.6 - 1.1) IVSs: 1.3 cm LVIDs: 2.9 cm LVPWs: 1.4 cm Ao Diam: 2.7 cm (2.0 - 3.7) MV EXCURSION: 10.690 mm (> 18.000) MV EF SLOPE: 73 mm/s (70 - 150) EPSS: 0.5 cm MV E Oscar: 0.62 m/s MV DecT: 203 ms MV A Oscar: 0.73 m/s MV E/A Ratio: 0.86 RAP: 5.00 mmHg RVSP: 9.75 mmHg FINDINGS -------- Sinus rhythm. This was a techncally difficult study with suboptimal views, , Lumason utilized for enhancement of im ages. The left ventricular size is normal. Left ventricular wall thickness is normal. Overall left vent ricular systolic function is low-normal with, an EF between 50 - 55 %. The right ventricle is normal in size. The left atrial size is normal. 5.0mg OF Lumason UTLIZED: 2 OR MORE WALL SEGMENTS NOT VISUALIZED. The aortic valve is trileaflet, and appears structurally normal. No aortic stenosis or regurgitation. Mild mitral regurgitation is present. No regurgitation noted Right ventricular systolic pressure is normal at < 35 mmHg. The pulmonic valve was not well visualized. The aortic root size is normal. There is no pericardial effusion. CONCLUSIONS -------- 1. The left ventricular size is normal. 2. Left ventricular wall thickness is normal. 3. Overall left ventricular systolic function is low-normal with, an EF between 50 - 55 %. 4. The right ventricle is normal in size. 5. The left atrial size is normal. 6. Mild mitral regurgitation is present. 7. No regurgitation noted QUALITY REVIEWER: Samreen Knox RDCS
--- NOTE | 2020-02-21 12:35 | P.PN ---
Subjective Progress Note Date: 02/21/20 No further symptoms of slurred speech or TIA since yesterday. Objective - Vital Signs Vital signs: Vital Signs Temp 97.4 F L 02/21/20 08:17 Pulse 69 02/21/20 08: Resp 20 02/21/20 09:00 BP 139/68 02/21/20 08:17 Pulse Ox 96 02/21/20 08:17 Intake & Output 02/20/20 02/21/20 02/21/20 18:59 06:59 18:59 Intake Total 1000 900 Output Total 625 Balance 1000 -625 900 Weight 65.771 kg Intake: IV 1000 800 Sodium Chloride 0.9% 1, 1000 800 000 ml @ 999 mls/hr IV . Q1H1M STA Rx#:[id number] Oral 100 Output: Urine 625 Other: Voiding Method Toilet Toilet # Voids 1 2 - Exam On examination patient's mental status, speech and language functions are normal. No aphasia or dysarthria. Face is symmetric, visual strong are full. On muscle strength testing there is no blurred or drift and the strength is norm al. No ataxia for [id number] testing bilaterally. - Labs CBC & Chem 7: 02/20/20 15:13 02/20/20 15:13 Labs: Abnormal Lab Results - Last 24 Hours (Table) 02/20/20 02/20/20 02/21/20 Range/Units 15:13 15:13 05:53 RBC 3.71 L (4.30-5.90) m/uL Hgb 10.5 L (13.0-17.5) gm/dL Hct 33.0 L (39.0-53.0) % Lymphocytes # 0.9 L (1.0-4.8) k/uL Sodium 134 L (137-145) mmol/L Glucose 159 H (74-99) mg/dL Albumin 3.3 L (3.5-5.0) g/dL HDL Cholesterol 23 L (40-60) mg/dL Assessment and Plan Assessment: * Recurrent TIAs manifesting with transient speech difficulty lasting for less than a minute. * Bilateral moderate ICA stenosis * History of tobacco use * Unexplained weight loss. Patient in the process of getting EGD and colonoscopy. * Dyslipidemia. Plan: * Continue aspirin 325 mg daily. * Recommend high-dose statins. Patient has been started on Lipitor 80 mg daily. * Patient has moderate bilateral ICA stenosis noted on carotid Doppler. Patient follows up with Dr. Prado, vascular surgery as outpatient. * Fasting a.m. lipid panel showed cholesterol 119, LDL 79, HDL 23 and triglycerides 83. * 2-D echo showed normal left ventricular size and normal left ventricular wall thickness. EF is 50-55%. * Complete tobacco cessation. * Patient had unexplained weight loss and abdominal pain. Patient is already in the process of getting EGD and colonoscopy (scheduled for tomorrow as outpatient). I would suggest patient would have to undergo these procedures while being on antiplatelet medication, if possible. * Patient cannot have MRI of the brain because of presence of metal diann in the left foot, as per patient's daughter report. * Neurologically clear for discharge.
[2020-02-21 13:43] VITALS: BMI 19.6
--- NOTE | 2020-02-21 14:37 | P.GSCN ---
History of Present Illness Consult date: 02/21/20 Reason for Consult: TIA, bilateral internal carotid artery stenosis History of present illness: [place] 79-year-old male patient who sent in to the emergency department yesterday around 3 PM for recurrent episodes of slurred speech. The patient stated he was scheduled for a colonoscopy and EGD for progressive weight loss and was scheduled for today as an outpatient. He stopped his 81 mg aspirin 5 days ago, which he has been taking for years. He states he had turned his head yesterday certainly and suddenly he had pain that shot up the back of his neck and head. HEENT and states that he had an episode of slurred speech that lasted for likely less than a minute. He called an ambulance and during that time he had 2 more episodes of slurred speech lasting approximately a minute each. He denies any other focal deficits at that time such as numbness or tingling, weakness, loss of vision or blurred vision. However he does state that he has had some blurred vision in the right eye for around the past one month he has cataract in that eye. The patient underwent a CT head that showed age-related atrophic and chronic small vessel ischemic changes without any acute intracranial process. He had a carotid Doppler that showed bilateral antegrade flow in the vertebral arteries. The images and measurement suggests 50-70% stenosis in both internal carotid arteries. There was moderate bilateral plaque formation. The patient is known to Dr. Prado, and has been following with her in the outpatient setting for his carotid stenosis and he states worked up for blood flow to his lower extremities but said it was good. The patient denies any current shortness of breath, chest pain, bilateral upper or lower extremity weakness, difficulty with speaking, difficulty swallowing, however does have a blurred vision of the right eye. Review of Systems A 14 point review of system was completed all pertinent positives and negatives as stated in the HPI. Past Medical History Past Medical History: Cancer, COPD, Hyperlipidemia, Osteoarthritis (OA), Skin Disorder Additional Past Medical History / Comment(s): SKIN CANCER. GOUT. PSORIASIS (CLEARED UP AT THIS DATE). History of Any Multi-Drug Resistant Organisms: None Reported Past Surgical History: Appendectomy, Back Surgery, Joint Replacement Additional Past Surgical History / Comment(s): RIGHT WRIST SURGERY. BILATERAL CATARACTS. TOTAL RIGHT KNEE, ARTHROSCOPIC RIGHT KNEE, LT ANKLE FUSION, TOTAL RIGHT ANKLE REPLACEMENT, Spinal Fusion Past Anesthesia/Blood Transfusion Reactions: No Reported Reaction Past Psychological History: No Psychological Hx Reported Smoking Status: Former smoker Past Alcohol Use History: Rare Additional Past Alcohol Use History / Comment(s): STARTED SMOKING AT AGE 19 QUIT SMOKING 2012 SMOKED 1/2PPD Past Drug Use History: None Reported - Past Family History Brother(s) Family Medical History: Cancer Additional Family Medical History / Comment(s): "LYMPH NODE CANCER" Mother Family Medical History: Myocardial Infarction ([place]) Father Family Medical History: Myocardial Infarction ([place]) Medications and Allergies Home Medications Medication Instructions Recorded Confirmed Type Albuterol Nebulized [Ventolin 2.5 mg INHALATION RT-QID PRN 06/10/19 02/20/20 History Nebulized] Pravastatin Sodium [Pravachol] 10 mg PO QAM 06/10/19 02/20/20 History Cholecalciferol [Vitamin D3 (25 2,000 mg PO DAILY 02/17/20 02/20/20 History Mcg = 1000 Iu)] Albuterol Sulfate [Ventolin HFA] 1 puff INHALATION RT-Q4H PRN 02/20/20 02/20/20 History Fluticasone/Salmeterol [Advair 1 puff INHALATION RT-BID 02/20/20 02/20/20 History 500-50 Diskus] Allergies Allergy/AdvReac Type Severity Reaction Status Date / Time No Known Allergies Allergy Verified 02/20/20 15:55 Surgical - Exam Vital Signs Pulse Resp BP Pulse Ox 90 18 143/68 100 02/20/20 14:56 02/20/20 14:56 02/20/20 14:56 02/20/20 14:56 General appearance: The patient is alert, oriented, in no acute distress. HET: Head is normocephalic and atraumatic. Pupils are equal and reactive. Neck: Supple without lymphadenopathy. Trachea midline. No carotid bruit bilaterally. Heart: S1 S2. Regular rate and rhythm. Lungs: No crackles or wheezes are heard. Abdomen: Soft, nontender, nondistended with bowel sounds. Extremities: Normal skin color and turgor. No cyanosis, rash, ulceration, clubbing, or edema. Radial and pedal pulses are 2/4 bilaterally. Neurological: No focal deficits. Strength and sensation are grossly intact. Patient is alert and oriented 3, is able to state he is at [facility] in [place], the year is 2020, and his full name. His speech is fluent, his tongue protrudes midline, he has facial symmetry, he has normal tone and strength to bilateral upper and lower extremities. Results CT brain without contrast reviewed the impression showing age-related atrophic and chronic small vessel ischemic changes without acute intracranial process seen at this time Bilateral carotid ultrasound reviewed showing there is antegrade flow in the vertebral arteries. Images the measurement suggests 50-70% stenosis in both in ternal carotid arteries, with moderate bilateral plaque formation. - Labs 02/20/20 15:13 02/20/20 15:13 Abnormal Lab Results - Last 24 Hours (Table) 02/20/20 02/20/20 02/21/20 Range/Units 15:13 15:13 05:53 RBC 3.71 L (4.30-5.90) m/uL Hgb 10.5 L (13.0-17.5) gm/dL Hct 33.0 L (39.0-53.0) % Lymphocytes # 0.9 L (1.0-4.8) k/uL Sodium 134 L (137-145) mmol/L Glucose 159 H (74-99) mg/dL Albumin 3.3 L (3.5-5.0) g/dL HDL Cholesterol 23 L (40-60) mg/dL Diabetes panel 02/20/20 02/21/20 Range/Units 15:13 05:53 Sodium 134 L (137-145) mmol/L Potassium 4.1 (3.5-5.1) mmol/L Chloride 98 (98-107) mmol/L Carbon Dioxide 24 (22-30) mmol/L BUN 14 (9-20) mg/dL Creatinine 0.81 (0.66-1.25) mg/dL Glucose 159 H (74-99) mg/dL Calcium 8.9 (8.4-10.2) mg/dL AST 28 (17-59) U/L ALT 19 (4-49) U/L Alkaline Phosphatase 100 (38-126) U/L Total Protein 6.7 (6.3-8.2) g/dL Albumin 3.3 L (3.5-5.0) g/dL Triglycerides 83 (<150) mg/dL HDL Cholesterol 23 L (40-60) mg/dL Calcium panel 02/20/20 Range/Units 15:13 Calcium 8.9 (8.4-10.2) mg/dL Albumin 3.3 L (3.5-5.0) g/dL Pituitary panel 02/20/20 Range/Units 15:13 Sodium 134 L (137-145) mmol/L Potassium 4.1 (3.5-5.1) mmol/L Chloride 98 (98-107) mmol/L Carbon Dioxide 24 (22-30) mmol/L BUN 14 (9-20) mg/dL Creatinine 0.81 (0.66-1.25) mg/dL Glucose 159 H (74-99) mg/dL Calcium 8.9 (8.4-10.2) mg/dL Adrenal panel 02/20/20 Range/Units 15:13 Sodium 134 L (137-145) mmol/L Potassium 4.1 (3.5-5.1) mmol/L Chloride 98 (98-107) mmol/L Carbon Dioxide 24 (22-30) mmol/L BUN 14 (9-20) mg/dL Creatinine 0.81 (0.66-1.25) mg/dL Glucose 159 H (74-99) mg/dL Calcium 8.9 (8.4-10.2) mg/dL Total Bilirubin 0.5 (0.2-1.3) mg/dL AST 28 (17-59) U/L ALT 19 (4-49) U/L Alkaline Phosphatase 100 (38-126) U/L Total Protein 6.7 (6.3-8.2) g/dL Albumin 3.3 L (3.5-5.0) g/dL Assessment and Plan Assessment: 1. Bilateral internal carotid artery stenosis approximately 50-70% 2. TIA with recurrent slurred speech 3. History of tobacco use Plan: Continue with aspirin and statin. Continue with recommendations per neurology. No acute vascular surgical intervention indicated at this time. Patient to follow-up with Dr. Prado in the office after discharge. Thank you for this consultation allowing us take part in the plan of care of your patient during his hospital stay The above dictated assessment and findings were discussed with Dr. Ward. The impression and plan of care have been directed as dictated.
[2020-02-21] MEDS: ASPIRIN 325 MG TAB PO SCH (15:00)
[2020-02-21] MEDS: ATORVASTATIN 80 MG TAB PO SCH (20:17)
[2020-02-21] MEDS: FAMOTIDINE 20 MG TAB PO SCH (20:21)
[2020-02-22] MEDS: SODIUM CHLORIDE 0.9% 1,000 ML IV SCH (02:37)
[2020-02-22] MEDS: SYMBICORT 160-4.5 MCG INHALER INHALATION SCH (08:05)
[2020-02-22 08:12] VITALS: BP 124/60; PULSE 79; RESP 16; TEMP 97.9
[2020-02-22] MEDS: ASPIRIN 325 MG TAB PO SCH (09:17)
[2020-02-22] MEDS: HEPARIN SODIUM,PORCINE 5,000 UNIT/ML 1 ML VIAL SQ SCH (09:17)
[2020-02-22] MEDS: CHOLECALCIFEROL 1,000 UNIT TAB PO SCH (09:17)
[2020-02-22] MEDS: FAMOTIDINE 20 MG TAB PO SCH (09:17)
--- NOTE | 2020-02-22 12:53 | P.DS ---
Providers Date of admission: 02/20/20 16:24 Attending physician: Terry Huff MD Consults: 02/20/20 15:58 Consult Physician Routine Consulting Provider: Landon No Consult Reason/Comments: TIA Do you want consulting provider notified?: Yes 02/20/20 22:13 Consult Physician Routine Consulting Provider: Elle Prado Consult Reason/Comments: B/L carotid stenosis Do you want consulting provider notified?: Yes Primary care physician: Maximo Weber [facility] Course: Diagnoses: Possible TIA with 2 episodes of slurred speech bilateral internal carotid stenosis 50-70% Weight loss, patient workup was initiated as an outpatient and she supposed to get EGD/colonoscopy today Hyperlipidemia COPD: an active issue Gout History of Tenosynovitis Hospital course: This is a pleasant 79-year-old male with multiple medical problems including hyperlipidemia, osteoarthritis, COPD, gout, his recently scheduled for EGD/colonoscopy supposedly today for his problem of weight loss. Presents because of 2 episodes of slurred speech that lasted a few minutes. Also is complaining of from slight right-sided blurred vision on the right side for about 2 weeks. However he denies headache, no weakness or numbness in the extremities. No difficulty swallowing. CT of the brain: No acute process by Radiologist as well. Age-related atrophic. Patient has been evaluated by neurologist, she was started on aspirin 325 mg, MRI of the brain could not be done due to metal diann in the left foot. However patient's symptoms of slurred speech or blurred vision improved and patient was cleared for discharge. C arotid Doppler showed internal carotid artery stenosis on both sides at 50-70%, patient is known to Dr. Prado before and he was referred for outpatient follow- up with Dr. Prado as per neurologist recommendation. Echocardiogram showed ejection fraction 50-55% Patient is a known history of weight loss and his workup has been initiated as an outpatient and he supposed to get EGD/colonoscopy today, patient was instructed to follow up with GI as an outpatient and with his PCP for further recommendation, it was recommended that patient keep taking aspirin through his endoscopic procedures Patient was cleared for discharge by neurology service Problems and management plan were discussed with the patient and he verbalized understanding and acceptance Patient was found stable and can be discharged home however he needs follow-up as an outpatient. Patient was instructed to follow up with PCP Dr. Weber within one week and patient agrees with his appointment on 02/23. Patient was instructed to follow up with Dr. Prado in one week and he agrees with appointment on 02/28, patient was instructed to follow up with his neurologist in 2 weeks and he agrees (they will call pt) and Bob buitrago (they will call pt) Gen: patient is a AAOx3, no distress CVS: S1-S2, RRR, no murmur Lungs: B/L CTA, no wheezing Abdomen: soft, no distention, no tenderness, positive bowel sounds Extremity: no leg edema or induration Time spent more than 35 minutes Patient Condition at Discharge: Stable Plan - Discharge Summary New Discharge Prescriptions: New Aspirin 325 mg PO DAILY #30 tab Atorvastatin [Lipitor] 80 mg PO HS #30 tab Famotidine [Pepcid] 20 mg PO BID #60 tab Continue Albuterol Nebulized [Ventolin Nebulized] 2.5 mg INHALATION RT-QID PRN PRN Reason: Shortness Of Breath Cholecalciferol [Vitamin D3 (25 Mcg = 1000 Iu)] 2,000 mg PO DAILY Albuterol Sulfate [Ventolin HFA] 1 puff INHALATION RT-Q4H PRN PRN Reason: Shortness Of Breath Fluticasone/Salmeterol [Advair 500-50 Diskus] 1 puff INHALATION RT-BID Discontinued Pravastatin Sodium [Pravachol] 10 mg PO QAM Discharge Medication List Albuterol Nebulized [Ventolin Nebulized] 2.5 mg INHALATION RT-QID PRN 06/10/19 [History] Cholecalciferol [Vitamin D3 (25 Mcg = 1000 Iu)] 2,000 mg PO DAILY 02/17/20 [History] Albuterol Sulfate [Ventolin HFA] 1 puff INHALATION RT-Q4H PRN 02/20/20 [History] Fluticasone/Salmeterol [Advair 500-50 Diskus] 1 puff INHALATION RT-BID 02/20/20 [History] Aspirin 325 mg PO DAILY #30 tab 02/22/20 [Rx] Atorvastatin [Lipitor] 80 mg PO HS #30 tab 02/22/20 [Rx] Famotidine [Pepcid] 20 mg PO BID #60 tab 02/22/20 [Rx] Follow up Appointment(s)/Referral(s): Elle Prado DO [STAFF PHYSICIAN] - 02/29/20 10:45 am Maximo Weber DO [Primary Care Provider] - 02/24/20 2:00 pm Destini Buitrago MD [STAFF PHYSICIAN] - 1-2 Days (to reschedule your EGD/colonoscopy office will call to schedule) Mandy Montgomery MD [Medical Doctor] - 2 Weeks (neurologist office will call to schedule) Patient Instructions/Handouts: Transient Ischemic Attack (DC), How to Stop Smoking (DC) Activity/Diet/Wound Care/Special Instructions: Heart healthy diet Activity is limited till you see your doctor We recommend to keep aspirin urine your EGD/colonoscopy procedures if possible Discharge Disposition: HOME SELF-CARE
--- NOTE | 2020-02-22 14:44 | P.PN ---
Subjective Progress Note Date: 02/22/20 Patient is an 79-year-old male known to me from the office. He states his been doing well since his admission to the hospital. No further work finding difficulties. He recently underwent an ultrasound in my office revealing ICA stenosis of 50-79%, although the peak systolic velocity measures 136 making him closer to 50% Similarly ultrasound performed here revealed a peak systolic velocity of 127 on the left. Again confirming closer to 50% stenosis Objective - Vital Signs Vital signs: Vital Signs Temp 97.9 F 02/22/20 07:58 Pulse 79 02/22/20 07:58 Resp 16 02/22/20 07:58 BP 124/60 02/22/20 07:58 Pulse Ox 96 02/22/20 07:58 Intake & Output 02/21/20 02/22/20 02/22/20 18:59 06:59 18:59 Intake Total 1100 Output Total 600 Balance 1100 -600 Weight 65.771 kg Intake: IV 800 Sodium Chloride 0.9% 1, 800 000 ml @ 999 mls/hr IV . Q1H1M STA Rx#:[id number] Oral 300 Output: Urine 600 Other: Voiding Method Toilet Toilet # Voids 1 # Bowel Movements 1 - Exam Patient sitting in chair, HEENT is normocephalic, atraumatic, excellent motion intact. Heart is regular at this time. no respiratory distress. Abdomen soft, nontender and nondistended. Extremity show no clubbing, cyanosis or edema. Cranial nerves II through XII grossly intact. Normal mood and affect. - Labs CBC & Chem 7: 02/20/20 15:13 02/20/20 15:13 Assessment and Plan Assessment: Carotid artery stenosis Plan: After further review and discussion with the patient and review of the ultrasounds, I do believe he would best benefit from medical therapy given his closer to 50% stenosis. He may follow up as an outpatient. Further evaluation and workup per neurology
== END 2020-02-22 12:55 | disposition home or self-care (01) ==
LOC: EC 14:53 → 3NCARDOBS 16:24
PROVIDERS: ADMIT Internal Medicine; ATTEND Internal Medicine
DX: G45.9 Transient cerebral ischemic attack, unspecified (principal); I65.23 Occlusion and stenosis of bilateral carotid arteries; R63.4 Abnormal weight loss; H26.9 Unspecified cataract; E78.5 Hyperlipidemia, unspecified; J44.9 Chronic obstructive pulmonary disease, unspecified; M10.9 Gout, unspecified; M19.90 Unspecified osteoarthritis, unspecified site; L40.9 Psoriasis, unspecified; G31.9 Degenerative disease of nervous system, unspecified; F17.210 Nicotine dependence, cigarettes, uncomplicated; I67.82 Cerebral ischemia; I34.0 Nonrheumatic mitral (valve) insufficiency; Z87.39 Personal history of other diseases of the musculoskeletal system and connective tissue; Z79.51 Long term (current) use of inhaled steroids; Z79.899 Other long term (current) drug therapy; Z85.828 Personal history of other malignant neoplasm of skin; Z90.49 Acquired absence of other specified parts of digestive tract; Z98.890 Other specified postprocedural states; Z96.651 Presence of right artificial knee joint; Z98.41 Cataract extraction status, right eye; Z98.42 Cataract extraction status, left eye; Z98.1 Arthrodesis status; Z96.661 Presence of right artificial ankle joint; Z80.7 Family history of other malignant neoplasms of lymphoid, hematopoietic and related tissues; Z82.49 Family history of ischemic heart disease and other diseases of the circulatory system
CPT/HCPCS: 96361 ×3; 96372 ×3; 96374; 99291; 36415; 94640 ×2; 93005; 97161; 97166; 80061; 80053; 84484; 85025; 85610; 85730; 71046; 93880; 70450; G0378 ×3; C8929; J1644 ×3; Q9950; 93306

== ENCOUNTER 2020-03-30 08:40 | Day surgery (SDC) | payer MEDICARE ==
[2020-03-28 16:59] VITALS: BMI 20.3
[~2020-03-30 08:40] MED LIST changes: +LACTATED RINGERS 1,000 ML IV SCH; +LIDOCAINE 1% (10MG/ML) FOR IV START INTRADERMA PRN; -Pre Op ABX Message 1 EACH MISC MISCELLANE ONE
[2020-03-30 09:44] VITALS: RESP 16; TEMP 98.1
[2020-03-30] MEDS ORDERED: LIDOCAINE 1% INJ 10MG/ML (20 ML MDV) ONE (10:31)
[2020-03-30] MEDS ORDERED: PROPOFOL 10 MG/ML 20 ML VIAL IV ONE (10:31)
--- NOTE | 2020-03-30 10:59 | P.PCN ---
Date of Procedure: 03/30/20 Procedure(s) Performed: Brief history: Patient is a pleasant 79-year-old white male scheduled for an elective upper endoscopy as well as colonoscopy as a part of evaluation of abdominal discomfort, progressive weight loss of 20 pounds in the last 1 year duration. He is also scheduled for a screening colonoscopy today. Procedure performed: Esophagogastroduodenoscopy with biopsy Colonoscopy with snare polypectomy Preoperative diagnosis: Epigastric pain and weight loss Screening for colon cancer Anesthesia: MAC Procedure: After informed consent was obtained from the patient was brought into the endoscopy unit and IV sedation was administered by anesthesia under continuous monitoring. Initially upper endoscopy was done. The Olympus GF 160 video endoscope was inserted inserted into the mouth and esophagus intubated without any difficulty and was gradually advanced into the stomach and duodenum and carefully examined. The bulb and second part of the duodenum appeared normal. The scope was then withdrawn into the stomach adequately insufflated with air and upon careful examination the antrum and body, cardia and fundus appeared normal. The scope was then withdrawn into the esophagus. Moderate size hiatal hernia noted. The GE junction was located at 37 cm to the incisors. There was long segment of Encarnacion's esophagus extending from 30-37 cm from the incisors and biopsies were done. Rest of the esophagus appeared normal. Patient tolerated the procedure well. At this time the patient continued to remain sedation. Initial digital rectal examination was normal. Olympus CF 160 video colonoscope was then inserted into the rectum and gradually advanced to the cecum without any difficulty. Careful examination was performed as the scope was gradually being withdrawn. The prep was excellent. The cecum, ascending colon, transverse colon, appeared normal. The descending colon there was a 5 mm polyp removed by snare polypectomy. Scattered left-sided diverticulosis seen. descending colon, sigmoid colon and rectum appeared normal. Retroflexion was performed in the rectum and no lesions were noted. Patient tolerated the procedure well. Impression: 1. 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 Colonoscopy revealed scattered sigmoid diverticulosis and a 5 mm descending colon polyp status post snare polypectomy Recommendations: Findings of this examination were discussed with the patient as well as[ his family. He was advised to follow with the biopsy results. He will be started on Prilosec 20 mg daily. If the biopsy confirms presence of Encarnacion's esophagus he can have a repeat upper endoscopy in 2 years.
[2020-03-30 11:18] VITALS: BP 118/61; PULSE 78
== END 2020-03-30 11:42 | disposition home or self-care (01) ==
LOC: ORWHC2ENDO 08:40
PROVIDERS: ATTEND Internal Medicine Gastroenterology
DX: Z12.11 Encounter for screening for malignant neoplasm of colon (principal); D12.4 Benign neoplasm of descending colon; K57.30 Diverticulosis of large intestine without perforation or abscess without bleeding; K29.80 Duodenitis without bleeding; K31.89 Other diseases of stomach and duodenum; K22.70 Barrett's esophagus without dysplasia; K44.9 Diaphragmatic hernia without obstruction or gangrene; K08.89 Other specified disorders of teeth and supporting structures; I73.9 Peripheral vascular disease, unspecified; I65.29 Occlusion and stenosis of unspecified carotid artery; J44.9 Chronic obstructive pulmonary disease, unspecified; Z79.899 Other long term (current) drug therapy; Z97.2 Presence of dental prosthetic device (complete) (partial); Z87.891 Personal history of nicotine dependence; Z86.73 Personal history of transient ischemic attack (TIA), and cerebral infarction without residual deficits; Z85.828 Personal history of other malignant neoplasm of skin; Z79.51 Long term (current) use of inhaled steroids; Z79.82 Long term (current) use of aspirin; Z96.651 Presence of right artificial knee joint; Z98.890 Other specified postprocedural states
CPT/HCPCS: 88305; 45385; 43239; J2001; J2704

== ENCOUNTER → 2020-05-07 | Outpatient (CLI) | payer MEDICARE ==
[2020-05-07 19:44] LABS: Chol/HDL Ratio 3.47; LDL Cholesterol,Calculated 67.6 mg/dL (0.0-131.0); VLDL Calculation 11.4 mg/dL (5.00-40.00)
== END | disposition home or self-care (01) ==
LOC: LABWHC1 11:48
PROVIDERS: ATTEND Psychiatry & Neurology Pain Medicine
DX: Z51.81 Encounter for therapeutic drug level monitoring (principal)
CPT/HCPCS: 36415; 80061

== ENCOUNTER 2021-06-05 20:43 | Inpatient (IN) | payer MEDICARE ==
[2021-06-05] MEDS ORDERED: ACETAMINOPHEN TAB 500 MG TAB PO STA (20:59)
--- NOTE | 2021-06-05 21:02 | ED ---
General Adult HPI - General Chief complaint: Syncope Stated complaint: Weakness, Fall Source: patient, EMS Mode of arrival: EMS - History of Present Illness Initial comments: Dictation was produced using [employer] dictation software. please excuse any grammatical, word or spelling errors. Chief Complaint: 80-year-old male brought to the emergency Department from home by EMS for frequent falls History of Present Illness: 80-year-old male he was brought in by EMS from home. Patient allegedly has been suffering from frequent falls at home. Patient states that he does not remember falling. This feel slightly short of breath. EMS reports that upon arrival patient was found to be tachycardic. Informed EKG leads suggested that patient was in A. fib with rapid ventricular rate. Patient does not take any anticoagulation medications. He has seen cardiology before. Patient claims of some right foot pain. The ROS documented in this emergency department record has been reviewed and confirmed by me. Those systems with pertinent positive or negative responses have been documented in the HPI. All other systems are other negative and/or noncontributory. PHYSICAL EXAM: General Impression: Alert and oriented x3, not in acute distress HEENT: Normocephalic atraumatic, extra-ocular movements intact, pupils equal and reactive to light bilaterally, mucous membranes moist. Cardiovascular: Irregularly irregular Chest: Able to complete full sentences, no retractions, no tachypnea Abdomen: abdomen soft, non-tender, non-distended, no organomegaly Musculoskeletal: Pulses present and equal in all extremities, no peripheral edema Motor: no focal deficits noted Neurological: CN II-XII grossly intact, no focal motor or sensory deficits noted Skin: Intact with no visualized rashes Psych: Normal affect and mood ED course: 80-year-old male presents emergency department for frequent falls. Vital signs upon arrival shows temperature 100.1, heart rate 139, 93% on room air. Blood pressure is normal. EKG shows A. fib with rapid ventricular rate. Patient allegedly does not have any history of A. fib per does not take any anticoagulation medications. Patient has suffered frequent falls. We will await CT imaging before starting any medication to treat new-onset A. fib. Computed tomography scan of the head and C-spine shows no acute processes. Foot x-rays unremarkable. Pelvis x-rays negative. Chest x-ray is nonacute for traumatic processes but there is a ill-defined right lower lobe consolidation concerning for pneumonia.. At this point there is a concern of bleeding at this time. Patient started on Cardizem and heparin infusion. EKG interpretation: Ventricular rate 146, A. fib with RVR, QRS 110, QTc 451. no QTC prolongation, no ST or T-wave changes noted. Compared to EKG from 02/20/2020 which does not show any evidence of A. fib. Chart review was perf ormed. There does not appear to be any sort of documentation suggesting the patient has history of A. fib. - Related Data Home Medications Medication Instructions Recorded Confirmed Albuterol Nebulized [Ventolin 2.5 mg INHALATION RT-QID 06/10/19 06/05/21 Nebulized] Albuterol Sulfate [Ventolin HFA] 1 puff INHALATION RT-Q4H PRN 02/20/20 06/05/21 Fluticasone/Salmeterol [Advair 1 puff INHALATION RT-BID 02/20/20 06/05/21 500-50 Diskus] Cholecalciferol [Vitamin D3 (25 25 mcg PO DAILY@0900 06/05/21 06/05/21 Mcg = 1000 Iu)] Famotidine [Pepcid] 20 mg PO BID@0900,2100 06/05/21 06/05/21 Mirtazapine [Remeron] 15 mg PO HS@2100 06/05/21 06/05/21 Pravastatin Sodium 80 mg PO HS@2100 06/05/21 06/05/21 Triamcinolone 0.1% Cream [Kenalog 1 applicatio TOPICAL DAILY PRN 06/05/21 06/05/21 0.1% Cream] Ubidecarenone [Co Q-10] 200 mg PO DAILY@0900 06/05/21 06/05/21 Previous Rx's Medication Instructions Recorded Acetaminophen Tab [Tylenol] 650 mg PO Q6HR PRN tab 06/07/21 Amiodarone [Cordarone] See Taper PO DAILY #72 tablet 06/07/21 Apixaban [Eliquis] 5 mg PO BID #60 tab 06/07/21 Azithromycin [Zithromax] 500 mg PO HS #4 tab 06/07/21 Cefuroxime [Ceftin] 250 mg PO BID 3 Days #6 tab 06/07/21 Metoprolol Tartrate [Lopressor] 25 mg PO BID #60 tab 06/07/21 Allergies Allergy/AdvReac Type Severity Reaction Status Date / Time No Known Allergies Allergy Verified 06/05/21 22:57 Review of Systems ROS Statement: Those systems with pertinent positive or pertinent negative responses have been documented in the HPI. ROS Other: All systems not noted in ROS Statement are negative. Past Medical History Past Medical History: Cancer, COPD, CVA/TIA, GERD/Reflux, Hyperlipidemia, Osteoarthritis (OA), Skin Disorder Additional Past Medical History / Comment(s): SKIN CANCER. GOUT. PSORIASIS (CLEARED UP AT THIS DATE).TIA 02/19 x2, wt loss, diarrhea History of Any Multi-Drug Resistant Organisms: None Reported Past Surgical History: Appendectomy, Back Surgery, Joint Replacement Additional Past Surgical History / Comment(s): RIGHT WRIST SURGERY. BILATERAL CATARACTS. TOTAL RIGHT KNEE, ARTHROSCOPIC RIGHT KNEE, LT ANKLE FUSION, TOTAL RIGHT ANKLE REPLACEMENT, Spinal Fusion gout surgery rt hand. Past Anesthesia/Blood Transfusion Reactions: No Reported Reaction Past Psychological History: No Psychological Hx Reported Smoking Status: Former smoker - Past Family History Brother(s) Family Medical History: Cancer Additional Family Medical History / Comment(s): "LYMPH NODE CANCER" Mother Family Medical History: Myocardial Infarction ([place]) Father Family Medical History: Myocardial Infarction ([place]) Course Vital Signs 06/05/21 06/05/21 06/05/21 20:49 21:53 22:53 Temperature 100.1 F H Pulse Rate 139 H 136 H 126 H Pulse Rate [ Blending Tank Tender Helper ] Respiratory 20 20 20 Rate Blood Pressure 112/81 104/67 119/93 Blood Pressure [Right Arm] O2 Sat by Pulse 93 L 96 99 Oximetry 06/06/21 06/06/21 06/06/21 00:00 01:25 03:15 Temperature Pulse Rate 141 H 88 86 Pulse Rate [ Blending Tank Tender Helper ] Respiratory 22 20 20 Rate Blood Pressure 94/70 100/54 123/75 Blood Pressure [Right Arm] O2 Sat by Pulse 99 98 88 L Oximetry 06/06/21 06/06/21 06/06/21 03:25 07:20 07:32 Temperature 97.0 F L Pulse Rate 84 84 Pulse Rate [ 84 Blending Tank Tender Helper ] Respiratory 18 Rate Blood Pressure Blood Pressure 123/75 [Right Arm] O2 Sat by Pulse 97 Oximetry 06/06/21 06/06/2121 08:00 12:00 12:09 Temperature 97.7 F 97.6 F Pulse Rate 82 Pulse Rate [ 87 87 Blending Tank Tender Helper ] Respiratory 18 18 Rate Blood Pressure Blood Pressure 113/60 109/59 [Right Arm] O2 Sat by Pulse 95 93 L Oximetry 06/06/21 06/06/21 06/06/21 12: 14:00 14:47 Temperature Pulse Rate 82 82 Pulse Rate [ 87 Blending Tank Tender Helper ] Respiratory 18 Rate Blood Pressure Blood Pressure [Right Arm] O2 Sat by Pulse Oximetry 06/06/21 06/06/21 06/06/21 15:01 16:00 20:23 Temperature 98.1 F 97.5 F L Pulse Rate 82 98 Pulse Rate [ 92 Blending Tank Tender Helper ] Respiratory 18 20 Rate Blood Pressure 114/64 Blood Pressure 110/61 [Right Arm] O2 Sat by Pulse 94 L 90 L Oximetry Medical Decision Making - Lab Data Result diagrams: 06/07/21 08:38 06/07/21 08:38 Lab Results 06/05/21 06/05/21 06/05/21 Range/Units 21:01 21:01 21:01 WBC 18.2 H (3.8-10.6) k/uL RBC 4.00 L (4.30-5.90) m/uL Hgb 12.7 L (13.0-17.5) gm/dL Hct 36.7 L (39.0-53.0) % MCV 91.6 (80.0-100.0) fL MCH 31.6 (25.0-35.0) pg MCHC 34.6 (31.0-37.0) g/dL RDW 14.8 (11.5-15.5) % Plt Count 157 (150-450) k/uL MPV 8.6 Neutrophils % (Manual) 79 % Lymphocytes % (Manual) 6 % Monocytes % (Manual) 15 % Neutrophils # (Manual) 14.38 H (1.3-7.7) k/uL Lymphocytes # (Manual) 1.09 (1.0-4.8) k/uL Monocytes # (Manual) 2.73 H (0-1.0) k/uL Nucleated RBCs 0 (0-0) /100 WBC Manual Slide Review Performed PT 11.1 (9.0-12.0) sec INR 1.0 (<1.2) APTT 25.0 (22.0-30.0) sec Sodium 136 L (137-145) mmol/L Potassium 4.4 (3.5-5.1) mmol/L Chloride 100 (98-107) mmol/L Carbon Dioxide 26 (22-30) mmol/L Anion Gap 10 mmol/L BUN 16 (9-20) mg/dL Creatinine 1.01 (0.66-1.25) mg/dL Est GFR (CKD-EPI)AfAm 80 (>60 ml/min/1.73 sqM) Est GFR (CKD-EPI)NonAf 69 (>60 ml/min/1.73 sqM) Glucose 126 H (74-99) mg/dL Calcium 8.8 (8.4-10.2) mg/dL Magnesium 2.3 (1.6-2.3) mg/dL Total Bilirubin 1.4 H (0.2-1.3) mg/dL AST 63 H (17-59) U/L ALT 28 (4-49) U/L Alkaline Phosphatase 142 H (38-126) U/L Troponin I (0.000-0.034) ng/mL NT-Pro-B Natriuret Pep pg/mL Total Protein 7.2 (6.3-8.2) g/dL Albumin 3.8 (3.5-5.0) g/dL Coronavirus (PCR) (Not Detectd) 06/05/21 06/05/21 06/05/21 Range/Units 21:01 21:01 21:01 WBC (3.8-10.6) k/uL RBC (4.30-5.90) m/uL Hgb (13.0-17.5) gm/dL Hct (39.0-53.0) % MCV (80.0-100.0) fL MCH (25.0-35.0) pg MCHC (31.0-37.0) g/dL RDW (11.5-15.5) % Plt Count (150-450) k/uL MPV Neutrophils % (Manual) % Lymphocytes % (Manual) % Monocytes % (Manual) % Neutrophils # (Manual) (1.3-7.7) k/uL Lymphocytes # (Manual) (1.0-4.8) k/uL Monocytes # (Manual) (0-1.0) k/uL Nucleated RBCs (0-0) /100 WBC Manual Slide Review PT (9.0-12.0) sec INR (<1.2) APTT (22.0-30.0) sec Sodium (137-145) mmol/L Potassium (3.5-5.1) mmol/L Chloride (98-107) mmol/L Carbon Dioxide (22-30) mmol/L Anion Gap mmol/L BUN (9-20) mg/dL Creatinine (0.66-1.25) mg/dL Est GFR (CKD-EPI)AfAm (>60 ml/min/1.73 sqM) Est GFR (CKD-EPI)NonAf (>60 ml/min/1.73 sqM) Glucose (74-99) mg/dL Calcium (8.4-10.2) mg/dL Magnesium (1.6-2.3) mg/dL Total Bilirubin (0.2-1.3) mg/dL AST (17-59) U/L ALT (4-49) U/L Alkaline Phosphatase (38-126) U/L Troponin I 0.015 (0.000-0.034) ng/mL NT-Pro-B Natriuret Pep 1140 pg/mL Total Protein (6.3-8.2) g/dL Albumin (3.5-5.0) g/dL Coronavirus (PCR) Not Detected (Not Detectd) Critical Care Time Critical Care Time: Yes Total Critical Care Time: 33 Disposition Clinical Impression: Afib Disposition: ADMITTED IP TO THIS HOSP Condition: Fair
[2021-06-05 21:22] LABS: Albumin 3.8 g/dL (3.5-5.0); Calcium 8.8 mg/dL (8.4-10.2); Magnesium 2.3 mg/dL (1.6-2.3); Potassium 4.4 mmol/L (3.5-5.1); Total Bilirubin 1.4 mg/dL (0.2-1.3); Total Protein 7.2 g/dL (6.3-8.2)
[2021-06-05 21:31] LABS: Prothrombin Time 11.1 sec (9.0-12.0)
--- NOTE | 2021-06-05 21:31 | XR ---
EXAMINATION TYPE: XR chest 1V portable DATE OF EXAM: 06/05/2021 COMPARISON: 02/20/2020 INDICATION: Fall TECHNIQUE: Single frontal view of the chest is obtained. FINDINGS: The heart size is normal. The pulmonary vasculature is normal. There is a consolidation in the right lower lung field. Correlate for pneumonia. This should be follo wed to clearing. Underlying mass is not excluded. Pulmonary contusion is considered less likely shou ld be considered and correlated with the mechanism of injury. No pneumothorax is evident. IMPRESSION: 1. Right lower lobe ill-defined consolidation. Correlate for pneumonia. Follow-up to clearing is k[place] mmended.
--- NOTE | 2021-06-05 21:33 | XR ---
EXAMINATION TYPE: XR pelvis AP view DATE OF EXAM: 06/05/2021 COMPARISON: None HISTORY: Fall, pain TECHNIQUE: AP pelvis FINDINGS: Postsurgical changes are noted in the lumbar spine. Normal bowel gas is present. Femoral heads articulate with the acetabulum. Joint spaces are preserved. Symphysis pubis and sacroil iac joints are patent. No acute fractures are evident. IMPRESSION: 1. No acute posttraumatic change is identified. Follow up exams can be performed as clinically indic ated.
--- NOTE | 2021-06-05 21:34 | XR ---
EXAMINATION TYPE: XR foot complete RT DATE OF EXAM: 06/05/2021 COMPARISON: None HISTORY: Fall, pain TECHNIQUE: 3 view right foot FINDINGS: Right ankle prosthesis is noted. Tiny plantar calcaneal heel spur is present. Soft tissues appear normal. Structures appear osteopenic. Mild hallux valgus deformity is present. No acute fractures are identified. Mild osteopenia may make identification of an occult fracture more difficult. Follow up exams can be performed 7-10 days from acute trauma for continued pain. IMPRESSION: 1. No acute osseous abnormality right foot
[2021-06-05 21:44] LABS: HCT 36.7 % (39.0-53.0); HGB 12.7 gm/dL (13.0-17.5); MCH 31.6 pg (25.0-35.0); MCHC 34.6 g/dL (31.0-37.0); MCV 91.6 fL (80.0-100.0); Mean Platelet Volume 8.6; Platelet Count 157 k/uL (150-450); RDW 14.8 % (11.5-15.5); WBC 18.2 k/uL (3.8-10.6)
--- NOTE | 2021-06-05 22:28 | CT ---
EXAMINATION TYPE: CT brain levi thomason DATE OF EXAM: 06/05/2021 COMPARISON: Head CT scan 02/20/2020 HISTORY: Frequent falls CT DLP: 1563.4 mGycm Automated exposure control for dose reduction was used. There is cerebral cortical atrophy. There is no mass effect nor midline shift. There is no sign of in tracranial hemorrhage. Calvarium is intact. There is normal aeration of the mastoid sinuses. Skull ba se is intact. The cervical vertebra show some mild degenerative subluxation deformities at C4-5 and C5-6 and C6-7 u p to 3 mm. There is multilevel facet arthropathy. There is no compression fracture. There is mild dis c space narrowing from C5 to T1. IMPRESSION: Multilevel cervical spondylotic changes and mild subluxation. No fracture. Cerebral atrophy. No acute intracranial abnormality. No change.
[2021-06-05] MEDS ORDERED: HEPARIN SODIUM 1,000 UN/ML (10ML VL) IV ONE (22:30)
[2021-06-05] MEDS ORDERED: DILTIAZEM DRIP BOLUS FROM BAG 1 MG SOLN IV ONE (22:30)
[2021-06-05] MEDS ORDERED: DILTIAZEM 125 MG in SODIUM CHLORIDE 0.9% 100 ML IV SCH (22:30)
[2021-06-05] MEDS ORDERED: HEPARIN SODIUM 1,000 UN/ML (10ML VL) IV PRN (22:30)
[2021-06-05] MEDS ORDERED: cefTRIAXone IN SWFI 1,000 MG/10 ML SYRINGE IVP STA (22:32)
[2021-06-05] MEDS ORDERED: AZITHROMYCIN 500 MG in SODIUM CHLORIDE 0.9% 250 ML IVPB STA (22:32)
[2021-06-05] MEDS ORDERED: DEXTROSE 5% IN WATER 100 ML with AMIODARONE 150 MG IV ONE (23:00)
[2021-06-05] MEDS ORDERED: DEXTROSE 5% IN WATER 250 ML with AMIODARONE 300 MG IV ONE (23:00)
[2021-06-05] MEDS: HEPARIN SOD,PORK IN 0.45% NACL 25,000 UNIT in 0.45% NACL 1 250ML.BAG IV SCH (23:08)
[2021-06-05] MEDS ORDERED: ACETAMINOPHEN TAB 325 MG TAB PO PRN (23:16)
[2021-06-05] MEDS ORDERED: ONDANSETRON 4 MG/2 ML VIAL IVP PRN (23:16)
[2021-06-05] MEDS ORDERED: NALOXONE 0.4 MG/ML 1 ML VIAL IV PRN (23:16)
[2021-06-05 23:24] LABS: Lymphocytes # (M) 1.09 k/uL (1.0-4.8); Monocytes # (M) 2.73 k/uL (0-1.0); Neutrophils # (M) 14.38 k/uL (1.3-7.7); Neutrophils % (M) 79 %; Nucleated Red Blood Cells 0 /100 WBC (0-0); Total Cells Counted 100
[2021-06-05] MEDS ORDERED: AMIODARONE IN DEXTROSE,ISO-OSM 150 MG/100 ML PLAST..BAG IV ONE (23:40)
[2021-06-06] MEDS: SODIUM CHLORIDE 0.9% 1,000 ML IV SCH ×3 (00:29→12:40)
[2021-06-06] MEDS ORDERED: CALCIUM CARBONATE 500 MG CHEWABLE PO PRN (03:49)
[2021-06-06] MEDS ORDERED: ALBUTEROL NEBULIZED 2.5 MG/3 ML INHALATION PRN (03:49)
[2021-06-06] MEDS: PANTOPRAZOLE 40 MG TABLET PO SCH ×2 (06:13→17:28)
[2021-06-06] MEDS: ALBUTEROL NEBULIZED 2.5 MG/3 ML INHALATION SCH ×4 (07:18→21:54)
[2021-06-06] MEDS: SYMBICORT 160-4.5 MCG INHALER INHALATION SCH ×2 (07:19→21:54)
[2021-06-06] MEDS: CHOLECALCIFEROL 25 MCG (1000 IU) TABLET PO SCH (08:37)
[2021-06-06] MEDS ORDERED: NON FORMULARY DRUG (Ubidecarenone [Co Q-10] 100 MG Capsule) PO SCH (09:00)
[2021-06-06] MEDS ORDERED: CLOPIDOGREL 75 MG TAB PO SCH (09:00)
[2021-06-06] MEDS: AMIODARONE 200 MG TAB PO SCH ×2 (09:30→21:00)
--- NOTE | 2021-06-06 09:49 | P.HPCAR ---
History of Present Illness H&P Date: 06/06/21 Chief Complaint: 80-year-old gentleman brought to the hospital after a fall at home. This is an 80-year-old male here today for cardiac evaluation with new onset atrial fibrillation. Patient has a known history of TIA, hyperlipidemia, gout, COPD, and osteoarthritis. He was brought to the hospital after a fall at home. Patient was found to be in atrial fibrillation with RVR with a heart rate in the 130s. Patient was started on IV Cardizem and heparin. Patient's blood pressure could not tolerate the Cardizem, he was changed to amiodarone IV. Patient was then converted to sinus rhythm and the amiodarone was stopped. He remains on a heparin IV. His only complaint of increased weakness. He denies chest pain, palpitations, dyspnea on exertion, dizziness, or syncope. Patient is free from edema. Patient remains in sinus rhythm at this time and is on 2 L of oxygen for comfort. Review of systems: General: Patient denies fever, chills, weight gain, or weight loss Respiratory: Patient denies cough, dyspnea Cardiac: Patient denies chest pain, edema, palpitations Abdominal: Patient denies nausea, vomiting, diarrhea : Patient denies dysuria or hematuria Muscloskelatal: Patient complains of weakness Neurological: Patient denies seizure, dizziness, syncope. Has a known history of TIA Integumentary: Generalized bruising Physical exam: GENERAL: Well-appearing, well-nourished and in no acute distress. NECK: Supple without JVD or thyromegaly. LUNGS: Breath sounds clear to auscultation bilaterally. Respiration equal and unlabored. No wheezes, rales or rhonchi. HEART: Regular rate and rhythm without murmurs, rubs or gallops. S1 and S2 heard. EXTREMITIES: Normal range of motion, no edema. No clubbing or cyanosis. Peripheral pulses intact. ASSESSMENT [New onset atrial fibrillation with RVR Hyperlipidemia History of transient ischemic attack ] PLAN [Will start patient on amiodarone 400 mg twice a day Continue with heparin IV. Will convert patient to follow clusters are multiple stump patient's coverage. Echocardiogram to evaluate cardiac function and rule out valvular disease. Will continue to follow ] Nurse Practitioner note has been reviewed, I agree with a documented findings and plan of care. Patient was seen and examined. Physical Exam Vitals: Vital Signs Temp Pulse Pulse Resp BP BP Pulse Ox 06/06/21 07:20 84 06/06/21 03:25 97.0 F L 84 18 123/75 97 06/06/21 03:15 86 20 123/75 88 L 06/06/21 01:25 88 20 100/54 98 06/06/21 00:00 141 H 22 94/70 99 06/05/21 22:53 126 H 20 119/93 99 06/05/21 21:53 136 H 20 104/67 96 06/05/21 20:49 100.1 F H 139 H 20 112/81 93 L Intake and Output 06/05/21 06/06/21 06/06/21 22:59 06:59 14:59 Intake Total 55.93 Output Total 400 Balance -344.07 Intake: Intake, IV Titration 55.93 Amount Heparin Sod,Pork in 0.45% 55.93 NaCl 25,000 unit In 0.45 % NaCl 1 250ml.bag @ 12 UNITS/KG/HR 8.165 mls/hr IV .Q24H ON LICENSE OF [facility] Rx#: [id number] Output: Urine 400 Other: Weight 68.039 kg 68.039 kg Past Medical History Past Medical History: Cancer, COPD, CVA/TIA, GERD/Reflux, Hyperlipidemia, Osteoarthritis (OA), Skin Disorder Additional Past Medical History / Comment(s): SKIN CANCER. GOUT. PSORIASIS (CLEARED UP AT THIS DATE).TIA 02/19 x2 History of Any Multi-Drug Resistant Organisms: None Reported Past Surgical History: Appendectomy, Back Surgery, Joint Replacement Additional Past Surgical History / Comment(s): RIGHT WRIST SURGERY. BILATERAL CATARACTS. TOTAL RIGHT KNEE, ARTHROSCOPIC RIGHT KNEE, LT ANKLE FUSION, TOTAL RIGHT ANKLE REPLACEMENT, Spinal Fusion gout surgery rt hand. Past Anesthesia/Blood Transfusion Reactions: No Reported Reaction Past Psychological History: No Psychological Hx Reported Smoking Status: Former smoker Past Alcohol Use History: Rare Additional Past Alcohol Use History / Comment(s): STARTED SMOKING AT AGE 19 QUIT SMOKING 2013 SMOKED 1/2PPD Past Drug Use History: None Reported - Past Family History Brother(s) Family Medical History: Cancer Additional Family Medical History / Comment(s): "LYMPH NODE CANCER" Mother Family Medical History: Myocardial Infarction (OR) Father Family Medical History: Myocardial Infarction (OR) Physical Examination Vital Signs Temp Pulse Pulse Resp BP BP Pulse Ox 06/06/21 07:20 84 06/06/21 03:25 97.0 F L 84 18 123/75 97 06/06/21 03:15 86 20 123/75 88 L 06/06/21 01:25 88 20 100/54 98 06/06/21 00:00 141 H 22 94/70 99 06/05/21 22:53 126 H 20 119/93 99 06/05/21 21:53 136 H 20 104/67 96 06/05/21 20:49 100.1 F H 139 H 20 112/81 93 L Intake and Output 06/05/21 06/06/21 06/06/21 22:59 06:59 14:59 Intake Total 55.93 Output Total 400 Balance -344.07 Intake: Intake, IV Titration 55.93 Amount Heparin Sod,Pork in 0.45% 55.93 NaCl 25,000 unit In 0.45 % NaCl 1 250ml.bag @ 12 UNITS/KG/HR 8.165 mls/hr IV .Q24H ON LICENSE OF [facility] Rx#: [id number] Output: Urine 400 Other: Weight 68.039 kg 68.039 kg Results 06/05/21 21:01 06/05/21 21:01 Cardiac Enzymes 06/05/21 06/05/21 Range/Units 21:01 21:01 AST 63 H (17-59) U/L Troponin I 0.015 (0.000-0.034) ng/mL Coagulation 06/05/21 06/06/21 Range/Units 21:01 04:56 PT 11.1 (9.0-12.0) sec APTT 25.0 38.2 H (22.0-30.0) sec CBC 06/05/21 Range/Units 21:01 WBC 18.2 H (3.8-10.6) k/uL RBC 4.00 L (4.30-5.90) m/uL Hgb 12.7 L (13.0-17.5) gm/dL Hct 36.7 L (39.0-53.0) % Plt Count 157 (150-450) k/uL Comprehensive Metabolic Panel 06/05/21 Range/Units 21:01 Sodium 136 L (137-145) mmol/L Potassium 4.4 (3.5-5.1) mmol/L Chloride 100 (98-107) mmol/L Carbon Dioxide 26 (22-30) mmol/L BUN 16 (9-20) mg/dL Creatinine 1.01 (0.66-1.25) mg/dL Glucose 126 H (74-99) mg/dL Calcium 8.8 (8.4-10.2) mg/dL AST 63 H (17-59) U/L ALT 28 (4-49) U/L Alkaline Phosphatase 142 H (38-126) U/L Total Protein 7.2 (6.3-8.2) g/dL Albumin 3.8 (3.5-5.0) g/dL Current Medications Generic Name Dose Route Start Last Admin Trade Name Freq PRN Reason Stop Dose Admin Acetaminophen 650 mg 06/05/21 23:16 Acetaminophen Tab 325 Mg Tab PO Q6HR PRN Mild Pain or Fever > 100.5 Albuterol Sulfate 2.5 mg 06/06/21 08:00 06/06/21 07:18 Albuterol Nebulized 2.5 Mg/3 Ml INHALATION 2.5 mg RT-QID EVELIN Administration Albuterol Sulfate 2.5 mg 06/06/21 03:49 Albuterol Nebulized 2.5 Mg/3 Ml INHALATION RT-Q4H PRN Shortness Of Breath Amiodarone HCl 400 mg 06/06/21 09:15 Amiodarone 200 Mg Tab PO BID EVELIN Budesonide/Formoterol Fumarate 2 puff 06/06/21 08:00 06/06/21 07:19 Symbicort 160-4.5 Mcg Inhaler INHALATION 2 puff RT-BID EVELIN Administration Calcium Carbonate/Glycine 1,000 mg 06/06/21 03:49 06/06/21 04:05 Calcium Carbonate 500 Mg Chewable PO 1,000 mg QID PRN Administration Heartburn Cholecalciferol 25 mcg 06/06/21 09:00 06/06/21 08:37 Cholecalciferol 25 Mcg (1000 Iu) Tablet PO 25 mcg DAILY@0900 EVELIN Administration Clopidogrel Bisulfate 75 mg 06/06/21 09:00 06/06/21 08:37 Clopidogrel 75 Mg Tab PO 75 mg DAILY@0900 EVELIN Administration Heparin Sodium (Porcine) 0 unit 06/05/21 22:30 Heparin Sodium 1,000 Un/Ml (10ml Vl) IV PER PROTOCOL PRN Low PTT Protocol Heparin Sodium/Sodium Chloride 250 mls @ 8.165 mls/hr 06/05/21 22:30 06/06/21 05:59 25,000 unit/ Sodium Chloride IV 14 units/kg/hr .Q24H [facility] 9.525 mls/hr Titration Protocol 12 UNITS/KG/HR Sodium Chloride 1,000 mls @ 130 mls/hr 06/05/21 23:30 06/06/21 03:57 Saline 0.9% IV 130 mls/hr .Q7H42M EVELIN Administration Mirtazapine 15 mg 06/06/21 21:00 Mirtazapine 15 Mg Tab PO HS@2100 [facility] Naloxone HCl 0.2 mg 06/05/21 23:16 Naloxone 0.4 Mg/Ml 1 Ml Vial IV Q2M PRN Opioid Reversal Ondansetron HCl 4 mg 06/05/21 23:16 06/06/21 03:25 Ondansetron 4 Mg/2 Ml Vial IVP 4 mg Q8HR PRN Administration Nausea And Vomiting Pantoprazole Sodium 40 mg 06/06/21 07:30 06/06/21 06:13 Pantoprazole 40 Mg Tablet PO 40 mg AC-BID EVELIN Administration Pravastatin Sodium 80 mg 06/06/21 21:00 Pravastatin Sodium 80 Mg Tab PO HS@2100 EVELIN Intake and Output 06/05/21 06/06/21 06/06/21 22:59 06:59 14:59 Intake Total 55.93 Output Total 400 Balance -344.07 Intake: Intake, IV Titration 55.93 Amount Heparin Sod,Pork in 0.45% 55.93 NaCl 25,000 unit In 0.45 % NaCl 1 250ml.bag @ 12 UNITS/KG/HR 8.165 mls/hr IV .Q24H [facility] Rx#: [id number] Output: Urine 400 Other: Weight 68.039 kg 68.039 kg 06/05/21 21:01 06/05/21 21:01
[2021-06-06] MEDS ORDERED: AZITHROMYCIN 500 MG TAB PO SCH ×2 (11:30→21:00)
--- NOTE | 2021-06-06 11:41 | P.CRDCN ---
History of Present Illness Consult date: 06/06/21 Requesting physician: Cruz Becker Consult reason: atrial fibrillation Chief complaint: New onset atrial fibrillation with RVR History of present illness: This is an 80-year-old male was brought to the hospital after a fall at home. Patient was found to be in new onset atrial fibrillation. Patient has a known history of TIA x2 most recent in November 2020, hyperlipidemia, gout, GERD, COPD, Ski n [place], and osteoarthritis. Patient was found to be in atrial fibrillation with RVR with a heart rate in the 130s. Patient was started on IV Cardizem and heparin. Patient's blood pressure could not tolerate the Cardizem, he was changed to amiodarone IV. Patient was then converted to sinus rhythm and the amiodarone was stopped. He remains on a heparin IV. His only complaint generalized weakness. He denies chest pain, palpitations, dyspnea on exertion, dizziness, or syncope. Patient is free from edema. Patient remains in sinus rhythm at this time and is on 2 L of oxygen for comfort. Diagnostics: EKG: Admission EKG shows atrial fibrillation with rapid ventricle response, with a ventricle rate of 146. EKG performed today shows normal sinus rhythm with a ventricle rate of 84. Chest x-ray: Right lower lobe, consolidation, correlation for pneumonia Labs: WBCs 18.2, Hemoglobin 12.7, potassium 4.4, B1 16, creatinine 1.01, magnesium 2.3, troponin 0.015, BNP 1140 Review of systems: General: Patient denies fever, chills, weight gain, or weight loss Respiratory: Patient denies cough, dyspnea Cardiac: Patient denies chest pain, edema, palpitations Gastrointestinal: Patient denies nausea, vomiting, diarrhea : Patient denies dysuria or hematuria Muscloskelatal: Patient complains of weakness Neurological: Patient denies seizure, dizziness, syncope. Has a known history of TIA Integumentary: Generalized bruising Physical exam: GENERAL: Well-appearing, well-nourished and in no acute distress. NECK: Supple without JVD or thyromegaly. LUNGS: Breath sounds clear to auscultation bilaterally. Respiration equal and unlabored. No wheezes, rales or rhonchi. HEART: Regular rate and Irregular rhythm without murmurs, rubs or gallops. S1 and S2 heard. EXTREMITIES: Normal range of motion, no edema. No clubbing or cyanosis. Peripheral pulses intact. ASSESSMENT New onset atrial fibrillation with RVR Hyperlipidemia History of transient ischemic attack PLAN Will start patient on amiodarone 400 mg twice a day Continue with heparin IV. Will convert patient to Eliquis or Xarelto, based on patient's coverage. Echocardiogram to evaluate cardiac function and rule out valvular disease. Will continue to follow. Nurse Practitioner note has been reviewed, I agree with a documented findings and plan of care. Patient was seen and examined. Past Medical History Past Medical History: Cancer, COPD, CVA/TIA, GERD/Reflux, Hyperlipidemia, Osteoa rthritis (OA), Skin Disorder Additional Past Medical History / Comment(s): SKIN CANCER. GOUT. PSORIASIS (CLEARED UP AT THIS DATE).TIA 02/19 x2 History of Any Multi-Drug Resistant Organisms: None Reported Past Surgical History: Appendectomy, Back Surgery, Joint Replacement Additional Past Surgical History / Comment(s): RIGHT WRIST SURGERY. BILATERAL CATARACTS. TOTAL RIGHT KNEE, ARTHROSCOPIC RIGHT KNEE, LT ANKLE FUSION, TOTAL RIGHT ANKLE REPLACEMENT, Spinal Fusion gout surgery rt hand. Past Anesthesia/Blood Transfusion Reactions: No Reported Reaction Past Psychological History: No Psychological Hx Reported Smoking Status: Former smoker Past Alcohol Use History: Rare Additional Past Alcohol Use History / Comment(s): STARTED SMOKING AT AGE 19 QUIT SMOKING 2013 SMOKED 1/2PPD Past Drug Use History: None Reported - Past Family History Brother(s) Family Medical History: Cancer Additional Family Medical History / Comment(s): "LYMPH NODE CANCER" Mother Family Medical History: Myocardial Infarction (SD) Father Family Medical History: Myocardial Infarction (SD) Medications and Allergies Home Medications Medication Instructions Recorded Confirmed Type Albuterol Nebulized [Ventolin 2.5 mg INHALATION RT-QID 06/10/19 06/05/21 History Nebulized] Albuterol Sulfate [Ventolin HFA] 1 puff INHALATION RT-Q4H PRN 02/20/20 06/05/21 History Fluticasone/Salmeterol [Advair 1 puff INHALATION RT-BID 02/20/20 06/05/21 History 500-50 Diskus] Cholecalciferol [Vitamin D3 (25 25 mcg PO DAILY@0900 06/05/21 06/05/21 History Mcg = 1000 Iu)] Clopidogrel [Plavix] 75 mg PO DAILY@0900 06/05/21 06/05/21 History Famotidine [Pepcid] 20 mg PO BID@0900,2100 06/05/21 06/05/21 History Mirtazapine [Remeron] 15 mg PO HS@209906/05/21 06/05/21 History Pravastatin Sodium 80 mg PO HS@209906/05/21 06/05/21 History Triamcinolone 0.1% Cream [Kenalog 1 applicatio TOPICAL DAILY PRN 06/05/21 06/05/21 History 0.1% Cream] Ubidecarenone [Co Q-10] 200 mg PO DAILY@0900 06/05/21 06/05/21 History Allergies Allergy/AdvReac Type Severity Reaction Status Date / Time No Known Allergies Allergy Verified 06/05/21 22:57 Physical Exam Vitals: Vital Signs Temp Pulse Pulse Resp BP BP Pulse Ox 06/06/21 08:00 97.7 F 87 18 113/60 95 06/06/21 07:20 84 06/06/21 03:25 97.0 F L 84 18 123/75 97 06/06/21 03:15 86 20 123/75 88 L 06/06/21 01:25 88 20 100/54 98 06/06/21 00:00 141 H 22 94/70 99 06/05/21 22:53 126 H 20 119/93 99 06/05/21 21:53 136 H 20 104/67 96 06/05/21 20:49 100.1 F H 139 H 20 112/81 93 L Intake and Output 06/05/21 06/06/21 06/06/21 22:59 06:59 14:59 Intake Total 55.93 Output Total 400 Balance -344.07 Intake: Intake, IV Titration 55.93 Amount Heparin Sod,Pork in 0.45% 55.93 NaCl 25,000 unit In 0.45 % NaCl 1 250ml.bag @ 12 UNITS/KG/HR 8.165 mls/hr IV .Q24H [facility] Rx#: [id number] Output: Urine 400 Other: Weight 68.039 kg 68.039 kg Results 06/05/21 21:01 06/05/21 21:01 Cardiac Enzymes 06/05/21 06/05/21 Range/Units 21:01 21:01 AST 63 H (17-59) U/L Troponin I 0.015 (0.000-0.034) ng/mL Coagulation 06/05/21 06/06/21 Range/Units 21:01 04:56 PT 11.1 (9.0-12.0) sec APTT 25.0 38.2 H (22.0-30.0) sec CBC 06/05/21 Range/Units 21:01 WBC 18.2 H (3.8-10.6) k/uL RBC 4.00 L (4.30-5.90) m/uL Hgb 12.7 L (13.0-17.5) gm/dL Hct 36.7 L (39.0-53.0) % Plt Count 157 (150-450) k/uL Comprehensive Metabolic Panel 06/05/21 Range/Units 21:01 Sodium 136 L (137-145) mmol/L Potassium 4.4 (3.5-5.1) mmol/L Chloride 100 (98-107) mmol/L Carbon Dioxide 26 (22-30) mmol/L BUN 16 (9-20) mg/dL Creatinine 1.01 (0.66-1.25) mg/dL Glucose 126 H (74-99) mg/dL Calcium 8.8 (8.4-10.2) mg/dL AST 63 H (17-59) U/L ALT 28 (4-49) U/L Alkaline Phosphatase 142 H (38-126) U/L Total Protein 7.2 (6.3-8.2) g/dL Albumin 3.8 (3.5-5.0) g/dL Current Medications Generic Name Dose Route Start Last Admin Trade Name Freq PRN Reason Stop Dose Admin Acetaminophen 650 mg 06/05/21 23:16 Acetaminophen Tab 325 Mg Tab PO Q6HR PRN Mild Pain or Fever > 100.5 Albuterol Sulfate 2.5 mg 06/06/21 08:00 06/06/21 07:18 Albuterol Nebulized 2.5 Mg/3 Ml INHALATION 2.5 mg RT-QID EVELIN Administration Albuterol Sulfate 2.5 mg 06/06/21 03:49 Albuterol Nebulized 2.5 Mg/3 Ml INHALATION RT-Q4H PRN Shortness Of Breath Amiodarone HCl 400 mg 06/06/21 09:15 06/06/21 09:30 Amiodarone 200 Mg Tab PO 400 mg BID EVELIN Administration Azithromycin 500 mg 06/06/21 21:00 Azithromycin 500 Mg Tab PO HS EVELIN Budesonide/Formoterol Fumarate 2 puff 06/06/21 08:00 06/06/21 07:19 Symbicort 160-4.5 Mcg Inhaler INHALATION 2 puff RT-BID EVELIN Administration Calcium Carbonate/Glycine 1,000 mg 06/06/21 03:49 06/06/21 04:05 Calcium Carbonate 500 Mg Chewable PO 1,000 mg QID PRN Administration Heartburn Cholecalciferol 25 mcg 06/06/21 09:00 06/06/21 08:37 Cholecalciferol 25 Mcg (1000 Iu) Tablet PO 25 mcg DAILY@0900 EVELIN Administration Heparin Sodium (Porcine) 0 unit 06/05/21 22:30 Heparin Sodium 1,000 Un/Ml (10ml Vl) IV PER PROTOCOL PRN Low PTT Protocol Heparin Sodium/Sodium Chloride 250 mls @ 8.165 mls/hr 06/05/21 22:30 06/06/21 05:59 25,000 unit/ Sodium Chloride IV 14 units/kg/hr .Q24H [facility] 9.525 mls/hr Titration Protocol 12 UNITS/KG/HR Sodium Chloride 1,000 mls @ 50 mls/hr 06/05/21 23:30 06/06/21 03:57 Saline 0.9% IV 130 mls/hr .Q20H EVELIN Administration Ceftriaxone Sodium 2 gm/ 50 mls @ 100 mls/hr 06/06/21 11:27 Sodium Chloride IVPB 06/06/21 11:56 ONCE ONE Mirtazapine 15 mg 06/06/21 21:00 Mirtazapine 15 Mg Tab PO HS@2100 EVELIN Naloxone HCl 0.2 mg 06/05/21 23:16 Naloxone 0.4 Mg/Ml 1 Ml Vial IV Q2M PRN Opioid Reversal Ondansetron HCl 4 mg 06/05/21 23:16 06/06/21 03:25 Ondansetron 4 Mg/2 Ml Vial IVP 4 mg Q8HR PRN Administration Nausea And Vomiting Pantoprazole Sodium 40 mg 06/06/21 07:30 06/06/21 06:13 Pantoprazole 40 Mg Tablet PO 40 mg AC-BID EVELIN Administration Pravastatin Sodium 80 mg 06/06/21 21:00 Pravastatin Sodium 80 Mg Tab PO HS@2100 [facility] Intake and Output 06/05/21 06/06/21 06/06/21 22:59 06:59 14:59 Intake Total 55.93 Output Total 400 Balance -344.07 Intake: Intake, IV Titration 55.93 Amount Heparin Sod,Pork in 0.45% 55.93 NaCl 25,000 unit In 0.45 % NaCl 1 250ml.bag @ 12 UNITS/KG/HR 8.165 mls/hr IV .Q24H [facility] Rx#: [id number] Output: Urine 400 Other: Weight 68.039 kg 68.039 kg 06/05/21 21:01 06/05/21 21:01
--- NOTE | 2021-06-06 12:32 | P.HPIM ---
History of Present Illness Patient was [id number] male came in with generalized weakness patient had history of TIAs in the past patient is presently on the Plavix patient is found to be in atrial fibrillation with rapid ventricular rate patient was also complaining of cough without any sputum production. Patient does have leukocytosis with the right lower lobe infiltrates doesn't have any fever patient was started on Rocephin and azithromycin which is appropriate. Patient denied any significant chest pain patient was on IV Cardizem which was tr ansitioned to oral amiodarone and patient is presently sinus rhythm patient remains on IV heparin. Echocardiogram is being obtained REVIEW OF SYSTEMS: CONSTITUTIONAL: Generalized weakness HEENT: No recent visual problems or hearing problems. Denied any sore throat. CARDIOVASCULAR: No chest pain, orthopnea, PND, no palpitations, no syncope. PULMONARY: No shortness of breath,, no hemoptysis. GASTROINTESTINAL: No diarrhea, no nausea, no vomiting, no abdominal pain. NEUROLOGICAL: No headaches, no weakness, no numbness. HEMATOLOGICAL: Denies any bleeding or petechiae. GENITOURINARY: Denies any burning micturition, frequency, or urgency. MUSCULOSKELETAL/RHEUMATOLOGICAL: Denies any joint pain, swelling, or any muscle pain. ENDOCRINE: Denies any polyuria or polydipsia. The rest of the 14-point review of systems is negative. PHYSICAL EXAMINATION: GENERAL: The patient is alert and oriented x3, not in any acute distress. Well developed, well nourished. HEENT: Pupils are round and equally reacting to light. EOMI. No scleral icterus. No conjunctival pallor. Normocephalic, atraumatic. No pharyngeal erythema. No thyromegaly. CARDIOVASCULAR: S1 and S2 present. No murmurs, rubs, or gallops. PULMONARY: Chest is clear to auscultation, no wheezing or crackles. ABDOMEN: Soft, nontender, nondistended, normoactive bowel sounds. No palpable organomegaly. MUSCULOSKELETAL: No joint swelling or deformity. EXTREMITIES: No cyanosis, clubbing, or pedal edema. NEUROLOGICAL: Gross neurological examination did not reveal any focal deficits. Significant generalized weakness with the muscle atrophy SKIN: No rashes. Assessment and plan -Right lower lobe come in today quite pneumonia: Patient will be continued on Rocephin and azithromycin, sputum cultures will be obtained. -New-onset atrial fibrillation with rapid unclear rate on admission presently sinus rhythm continue with amiodarone anti-correlation as per cardiology echo is pending -Generalized deconditioning and weakness -History of TIA in the past since patient is going to be on oral anticoagulation Plavix can be discontinued patient doesn't have any history of coronary artery disease with stents in the past -hyperlipidemia -Gastroesophageal reflux disease -COPD without any acute exacerbation DVT prophylaxis: Patient is presently on anticoagulation Past Medical History Past Medical History: Cancer, COPD, CVA/TIA, GERD/Reflux, Hyperlipidemia, Osteoarthritis (OA), Skin Disorder Additional Past Medical History / Comment(s): SKIN CANCER. GOUT. PSORIASIS (CLEARED UP AT THIS DATE).TIA 02/19 x2 History of Any Multi-Drug Resistant Organisms: None Reported Past Surgical History: Appendectomy, Back Surgery, Joint Replacement Additional Past Surgical History / Comment(s): RIGHT WRIST SURGERY. BILATERAL CATARACTS. TOTAL RIGHT KNEE, ARTHROSCOPIC RIGHT KNEE, LT ANKLE FUSION, TOTAL RIGHT ANKLE REPLACEMENT, Spinal Fusion gout surgery rt hand. Past Anesthesia/Blood Transfusion Reactions: No Reported Reaction Past Psychological History: No Psychological Hx Reported Smoking Status: Former smoker Past Alcohol Use History: Rare Additional Past Alcohol Use History / Comment(s): STARTED SMOKING AT AGE 19 QUIT SMOKING 2012 SMOKED 1/2PPD Past Drug Use History: None Reported - Past Family History Brother(s) Family Medical History: Cancer Additional Family Medical History / Comment(s): "LYMPH NODE CANCER" Mother Family Medical History: Myocardial Infarction (ME) Father Family Medical History: Myocardial Infarction (ME) Medications and Allergies Home Medications Medication Instructions Recorded Confirmed Type Albuterol Nebulized [Ventolin 2.5 mg INHALATION RT-QID 06/10/19 06/05/21 History Nebulized] Albuterol Sulfate [Ventolin HFA] 1 puff INHALATION RT-Q4H PRN 02/20/20 06/05/21 History Fluticasone/Salmeterol [Advair 1 puff INHALATION RT-BID 02/20/20 06/05/21 History 500-50 Diskus] Cholecalciferol [Vitamin D3 (25 25 mcg PO DAILY@0900 06/05/21 06/05/21 History Mcg = 1000 Iu)] Clopidogrel [Plavix] 75 mg PO DAILY@0900 06/05/21 06/05/21 History Famotidine [Pepcid] 20 mg PO BID@0900,2100 06/05/21 06/05/21 History Mirtazapine [Remeron] 15 mg PO HS@2100 06/05/21 06/05/21 History Pravastatin Sodium 80 mg PO HS@2100 06/05/21 06/05/21 History Triamcinolone 0.1% Cream [Kenalog 1 applicatio TOPICAL DAILY PRN 06/05/21 06/05/21 History 0.1% Cream] Ubidecarenone [Co Q-10] 200 mg PO DAILY@0900 06/05/21 06/05/21 History Allergies Allergy/AdvReac Type Severity Reaction Status Date / Time No Known Allergies Allergy Verified 06/05/21 22:57 Physical Exam Vitals: Vital Signs Temp Pulse Pulse Resp BP BP Pulse Ox 06/06/21 12:21 82 06/06/21 12:09 82 06/06/21 08:00 97.7 F 87 18 113/60 95 06/06/21 07:32 84 06/06/21 07:20 84 06/06/21 03:25 97.0 F L 84 18 123/75 97 06/06/21 03:15 86 20 123/75 88 L 06/06/21 01:25 88 20 100/54 98 06/06/21 00:00 141 H 22 94/70 99 06/05/21 22:53 126 H 20 119/93 99 06/05/21 21:53 136 H 20 104/67 96 06/05/21 20:49 100.1 F H 139 H 20 112/81 93 L Intake and Output 06/05/21 06/06/21 06/06/21 22:59 06:59 14:59 Intake Total 55.93 Output Total 400 Balance -344.07 Intake: Intake, IV Titration 55.93 Amount Heparin Sod,Pork in 0.45% 55.93 NaCl 25,000 unit In 0.45 % NaCl 1 250ml.bag @ 12 UNITS/KG/HR 8.165 mls/hr IV .Q24H [facility] Rx#: [id number] Output: Urine 400 Other: Weight 68.039 kg 68.039 kg Results CBC & Chem 7: 06/05/21 21:01 06/05/21 21:01 Labs: Abnormal Lab Results - Last 24 Hours (Table) 1206/05/21 06/06/21 Range/Units 21:01 21:01 04:56 WBC 18.2 H (3.8-10.6) k/uL RBC 4.00 L (4.30-5.90) m/uL Hgb 12.7 L (13.0-17.5) gm/dL Hct 36.7 L (39.0-53.0) % Neutrophils # (Manual) 14.38 H (1.3-7.7) k/uL Monocytes # (Manual) 2.73 H (0-1.0) k/uL APTT 38.2 H (22.0-30.0) sec Sodium 136 L (137-145) mmol/L Glucose 126 H (74-99) mg/dL Total Bilirubin 1.4 H (0.2-1.3) mg/dL AST 63 H (17-59) U/L Alkaline Phosphatase 142 H (38-126) U/L 06/06/21 Range/Units 11:22 WBC (3.8-10.6) k/uL RBC (4.30-5.90) m/uL Hgb (13.0-17.5) gm/dL Hct (39.0-53.0) % Neutrophils # (Manual) (1.3-7.7) k/uL Monocytes # (Manual) (0-1.0) k/uL APTT 33.8 H (22.0-30.0) sec Sodium (137-145) mmol/L Glucose (74-99) mg/dL Total Bilirubin (0.2-1.3) mg/dL AST (17-59) U/L Alkaline Phosphatase (38-126) U/L Thrombosis Risk Factor Assmnt - Choose All That Apply Any of the Below Risk Factors Present?: Yes Each Factor Represents 1 point: Abnormal pulmonary function (COPD) Other Risk Factors: Yes Each Risk Factor Represents 3 Points: Age 75 years or older Other congenital or acquired thrombophilia - If yes, enter type in comment: No Thrombosis Risk Factor Assessment Total Risk Factor Score: 4 Thrombosis Risk Factor Assessment Level: Moderate Risk
[2021-06-06] MEDS ORDERED: MIRTAZAPINE 15 MG TAB PO SCH (21:00)
[2021-06-06] MEDS ORDERED: PRAVASTATIN SODIUM 80 MG TAB PO SCH (21:00)
[2021-06-06] MEDS: HEPARIN SOD,PORK IN 0.45% NACL 25,000 UNIT in 0.45% NACL 1 250ML.BAG IV SCH (22:41)
[2021-06-07] MEDS ORDERED: AMIODARONE 360 MG in DEXTROSE 5% IN WATER 200 ML IV ONE ×2 (02:24)
[2021-06-07] MEDS ORDERED: AMIODARONE IN DEXTROSE,ISO-OSM 360 MG/200 ML PLAST..BAG IV ONE (02:30)
[2021-06-07] MEDS: PANTOPRAZOLE 40 MG TABLET PO SCH (06:16)
[2021-06-07] MEDS: ALBUTEROL NEBULIZED 2.5 MG/3 ML INHALATION SCH ×2 (08:07→11:07)
[2021-06-07] MEDS: SYMBICORT 160-4.5 MCG INHALER INHALATION SCH (08:07)
[2021-06-07] MEDS ORDERED: AMIODARONE 450 MG in DEXTROSE 5% IN WATER 250 ML IV SCH ×2 (08:30)
[2021-06-07] MEDS ORDERED: METOPROLOL TARTRATE 12.5 MG TAB PO SCH (09:00)
[2021-06-07] MEDS ORDERED: APIXABAN 5 MG TAB PO SCH (09:00)
[2021-06-07] MEDS: AMIODARONE 200 MG TAB PO SCH (09:21)
[2021-06-07] MEDS: CHOLECALCIFEROL 25 MCG (1000 IU) TABLET PO SCH (09:21)
[2021-06-07 09:50] LABS: HGB 10.4 gm/dL (13.0-17.5); MCH 31.3 pg (25.0-35.0); MCHC 33.6 g/dL (31.0-37.0); MCV 93.1 fL (80.0-100.0); Mean Platelet Volume 9.2; Platelet Count 159 k/uL (150-450); RBC 3.33 m/uL (4.30-5.90); RDW 14.4 % (11.5-15.5); WBC 19.6 k/uL (3.8-10.6)
[2021-06-07 10:30] LABS: African American GFR (CKD) >90 (>60 ml/min/1.73 sqM); Anion Gap 8 mmol/L; Blood Urea Nitrogen 12 mg/dL (9-20); Calcium 7.9 mg/dL (8.4-10.2); Carbon Dioxide 24 mmol/L (22-30); Chloride 103 mmol/L (98-107); Glucose 167 mg/dL (74-99); Magnesium 2.1 mg/dL (1.6-2.3); Non-African American GFR(CKD) 78 (>60 ml/min/1.73 sqM); Potassium 3.8 mmol/L (3.5-5.1); Sodium 135 mmol/L (137-145)
--- NOTE | 2021-06-07 10:46 | P.PN ---
Subjective Progress Note Date: 06/07/21 HISTORY OF PRESENT ILLNESS: This is a 80 year old male who follows in the office with Dr. Marshall but was last seen in 2019. Patient is admitted to the hospital due to atrial fibrillation. She went into atrophic relation with RVR overnight. He was started on IV amiodarone. This morning the patient is in sinus mechanism with a heart rate in the 80s. Blood pressure 121/63. Patient denies chest pain or pressure. He denies shortness of breath. He is on 3 L nasal cannula with oxygen saturations greater than 92%. PHYSICAL EXAM: VITAL SIGNS: Reviewed. GENERAL: Well-developed in no acute distress. NECK: Supple. No JVD or thyromegaly LUNGS: Respirations even and unlabored. Lungs diminished to auscultation bilaterally. HEART: Regular rate and rhythm. S1 and S2 heard. EXTREMITIES: Normal range of motion. No clubbing or cyanosis. Peripheral pulses intact. No lower extremity edema ASSESSMENT: New-onset paroxysmal atrial fibrillation with RVR Hypertension History of TIA PLAN: Obtain 2D echo to assess cardiac structure and function Discontinue IV amiodarone Continue oral amiodarone 400 mg twice a day for 3 days then decrease dose to 200 mg twice a day Begin metoprolol 25 mg twice a day Discontinue IV heparin. Begin Eliquis 5 mg by mouth twice a day. Case management consulted for insurance coverage Continue telemetry monitoring Further recommendations pending patient's course Nurse practitioner note has been reviewed by physician. Signing provider agrees with the documented findings, assessment, and plan of care. Objective - Vital Signs Vital signs: Vital Signs Temp 98.4 F 06/07/21 08:00 Pulse 80 06/07/21 08:25 Resp 19 06/07/21 08:00 BP 121/63 06/07/21 08:00 Pulse Ox 95 06/07/21 08:00 Intake & Output 06/06/21 06/07/21 06/07/21 18:59 06:59 18:59 Intake Total 673.185 93.918 240 Output Total 250 100 Balance 673.185 -156.082 140 Intake: Intake, IV Titration 673.185 93.918 Amount Heparin Sod,Pork in 0.45% 83.185 93.918 NaCl 25,000 unit In 0.45 % NaCl 1 250ml.bag @ 12 UNITS/KG/HR 8.165 mls/hr IV .Q24H [facility] Rx#: [id number] Sodium Chloride 0.9% 1, 590 000 ml @ 50 mls/hr IV . Q20H [facility] Rx#:[id number] Oral 240 Output: Urine 250 100 Other: Voiding Method Urinal # Voids 2 1 - Labs CBC & Chem 7: 06/07/21 08:38 06/07/21 08:38 Labs: Abnormal Lab Results - Last 24 Hours (Table) 06/06/21 06/06/21 06/07/21 Range/Units 11:22 20:29 02:01 WBC (3.8-10.6) k/uL RBC (4.30-5.90) m/uL Hgb (13.0-17.5) gm/dL Hct (39.0-53.0) % APTT 33.8 H 39.4 H 51.3 H (22.0-30.0) sec Sodium (137-145) mmol/L Glucose (74-99) mg/dL Calcium (8.4-10.2) mg/dL 06/07/21 06/07/21 06/07/21 Range/Units 08:38 08:38 08:38 WBC 19.6 H (3.8-10.6) k/uL RBC 3.33 L (4.30-5.90) m/uL Hgb 10.4 L (13.0-17.5) gm/dL Hct 31.0 L (39.0-53.0) % APTT 50.8 H (22.0-30.0) sec Sodium 135 L (137-145) mmol/L Glucose 167 H (74-99) mg/dL Calcium 7.9 L (8.4-10.2) mg/dL
--- NOTE | 2021-06-07 11:00 | ECHOF ---
Referral Reason:LV function MEASUREMENTS -------- HEIGHT: 180.3 cm WEIGHT: 68.0 kg BP: IVSd: 1.2 cm (0.6 - 1.1) LVIDd: 3.2 cm (3.9 - 5.3) LVPWd: 1.1 cm (0.6 - 1.1) IVSs: 2.0 cm LVIDs: 1.6 cm LVPWs: 1.9 cm LAESV Index (A-L): 12.59 ml/m Ao Diam: 3.1 cm (2.0 - 3.7) AV Cusp: 1.8 cm (1.5 - 2.6) LA Diam: 3.0 cm (2.7 - 3.8) MV EXCURSION: 12.495 mm (> 18.000) MV EF SLOPE: 93 mm/s (70 - 150) EPSS: 0.9 cm MV E Oscar: 0.94 m/s MV DecT: 160 ms MV A Oscar: 0.88 m/s MV E/A Ratio: 1.06 RAP: 5.00 mmHg RVSP: 23.85 mmHg FINDINGS -------- This was a technically good study. The left ventricular size is normal. There is mild concentric left ventricular hypertrophy. Overa ll left ventricular systolic function is normal with, an EF between 55 - 60 %. The diastolic fillin g pattern is normal for the age of the patient 10.63. The right ventricle is normal in size. The left atrial size is normal. Normal LA size by volume 22+/-6 ml/m2. The right atrial size is normal. Interatrial and interventricular septum intact. Aortic valve is trileaflet and is mildly thickened. The mitral valve is normal. The mitral valve leaflets are mildly thickened. Moderate mitral regur gitation is present. The tricuspid valve appears structurally normal. Mild tricuspid regurgitation present. Right vent ricular systolic pressure is normal at < 35 mmHg. There is no pulmonic regurgitation present. The aortic root size is normal. Normal inferior vena cava with normal inspiratory collapse consistent with estimated right atrial pre ssure of 5 mmHg. There is no pericardial effusion. CONCLUSIONS -------- 1. The left ventricular size is normal. 2. There is mild concentric left ventricular hypertrophy. 3. Overall left ventricular systolic function is normal with, an EF between 55 - 60 %. 4. The diastolic filling pattern is normal for the age of the patient 10.63 5. Aortic valve is trileaflet and is mildly thickened. 6. The mitral valve leaflets are mildly thickened. 7. Moderate mitral regurgitation is present. 8. Mild tricuspid regurgitation present. 9. There is no pericardial effusion. SPORTS MEDICINE PHYSICIAN: Heather Haynes RDCS
[2021-06-07 11:44] VITALS: BP 109/66; PULSE 87; RESP 16; TEMP 97.3
[2021-06-07] MEDS: SODIUM CHLORIDE 0.9% 1,000 ML IV SCH (12:52)
--- NOTE | 2021-06-07 15:24 | P.DS ---
Providers Date of admission: 06/05/21 23:16 Attending physician: Ana Rosa Pillai Consults: 06/05/21 23:41 Consult Physician Routine Consulting Provider: Ventura Buitrago Consult Reason/Comments: new onset afib, afib rvr Do you want consulting provider notified?: Yes Primary care physician: Maximo Weber [facility] Course: -Possible right lower lobe pneumonia -New on-set atrial fibrillation with rapid ventricular rate on amiodarone, metoprolol, eliquis for anticoagulation -Generalized deconditioning and weakness with mechanical fall History of TIA -Hyperlipidemia -Gastroesophageal reflux disease COPD without any acute exacerbation DVT prophylaxis: Eliquis Discharge Disposition Patient is cleared for discharge to rehab today on oral amiodarone on 400 mg po twice a day for 3 days. After 3 days, decrease amiodarone to 200 mg PO twice a day, metoprolol 25 mg PO twice a day, eliquis 5 mg PO twice a day. Hospital course This is a pleasant 80-year-old male who was admitted to the hospital with ge neralized weakness status post fall. Patient follows with Dr. Maximo Weber in the outpatient setting. Patient has a past medical history significant for TIA x2 in 2017 and has been on Plaxix 75 mg PO daily for prophylaxis. He was found to be in atrial fibrillation with rapid ventricular rate on admission. He was subsequently placed on amiodraone gtt and heparin gtt and admitted to the hospital with cardiology consultation. Additional past medical history includes hyperlipidemia, GERD, COPD, Psoriasis, patient is a former smoker, from age 19 until the year 2013 smoked about half pack per day. Patient had a right foot x- ray completed that showed no osseous and really right foot. He is currently pain-free in the right foot however pain continues would recommend a repeat right foot x-ray in 7-10 days. Pelvis x-ray was negative. Chest x-ray on admission showed right lower lobe ill-defined consolidation. Correlate for pneumonia. Echocardiogram this admission shows an EF of 55-60% with mild mitral regurgitation, mild tricuspid regurgitation. After a dilation a cardiology Plavix was discontinued and patient was started on eliquis 5 mg by mouth twice a day and the above-mentioned medications for management of atrial fibrillation. Patient was started on IV Rocephin as well as by mouth Zithromax for questionable pneumonia however lungs remained clear to auscultation, transition to finish a course of Zithromax and discharge as well as a short course of oral Ceftin. Patient has remained adequate oxygen saturation, he is currently 98% on room air, he has remained afebrile in the last 24 hours, he did have one temp on admission which was 100.1. Blood pressure has been stable in the 110s over 60s. We will discharge patient to rehab today and to follow up with cardiology office as well as PCP. Repeat labs in 2-3 days. 06/07/2021 Patient evaluated today sitting in a chair. He denies any cough or shortness of breath, denies chest pain, chest pressure or palpitations. Heart rate is controlled and he was transitioned to oral amiodarone and metoprolol. Lungs are clear auscultation, abdomen soft nontender, denies nausea vomiting or diarrhea. Patient does have a small dressing to his right lower extremity where he had a psoriatic patch. He states that he did scratch it and become a bit irritated, he follows with Dr Santiago at the dermatology office for his psoriasis. Vital signs are stable today. Please see medication reconciliation for a list of current medications. Thank you for allowing us to participate in the are of this patient. Patient Condition at Discharge: Fair Plan - Discharge Summary Discharge Rx Participant: No New Discharge Prescriptions: New Apixaban [Eliquis] 5 mg PO BID #60 tab Acetaminophen Tab [Tylenol] 650 mg PO Q6HR PRN tab PRN Reason: Mild Pain Or Fever > 100.5 Azithromycin [Zithromax] 500 mg PO HS #4 tab Cefuroxime [Ceftin] 250 mg PO BID 3 Days #6 tab Metoprolol Tartrate [Lopressor] 25 mg PO BID #60 tab Amiodarone [Cordarone] See Taper PO DAILY #72 tablet Continue Albuterol Nebulized [Ventolin Nebulized] 2.5 mg INHALATION RT-QID Albuterol Sulfate [Ventolin HFA] 1 puff INHALATION RT-Q4H PRN PRN Reason: Shortness Of Breath Fluticasone/Salmeterol [Advair 500-50 Diskus] 1 puff INHALATION RT-BID Pravastatin Sodium 80 mg PO HS@2100 Ubidecarenone [Co Q-10] 200 mg PO DAILY@0900 Famotidine [Pepcid] 20 mg PO BID@0900,2100 Triamcinolone 0.1% Cream [Kenalog 0.1% Cream] 1 applicatio TOPICAL DAILY PRN PRN Reason: PSORIASIS Mirtazapine [Remeron] 15 mg PO HS@2099 Cholecalciferol [Vitamin D3 (25 Mcg = 1000 Iu)] 25 mcg PO DAILY@0900 Discontinued Clopidogrel [Plavix] 75 mg PO DAILY@0900 Discharge Medication List Albuterol Nebulized [Ventolin Nebulized] 2.5 mg INHALATION RT-QID 06/10/19 [History] Albuterol Sulfate [Ventolin HFA] 1 puff INHALATION RT-Q4H PRN 02/20/20 [History] Fluticasone/Salmeterol [Advair 500-50 Diskus] 1 puff INHALATION RT-BID 02/20/20 [History] Cholecalciferol [Vitamin D3 (25 Mcg = 1000 Iu)] 25 mcg PO DAILY@0900 06/05/21 [History] Famotidine [Pepcid] 20 mg PO BID@0900,209906/05/21 [History] Mirtazapine [Remeron] 15 mg PO HS@209906/05/21 [History] Pravastatin Sodium 80 mg PO HS@209906/05/21 [History] Triamcinolone 0.1% Cream [Kenalog 0.1% Cream] 1 applicatio TOPICAL DAILY PRN 06/05/21 [History] Ubidecarenone [Co Q-10] 200 mg PO DAILY@0900 06/05/21 [History] Acetaminophen Tab [Tylenol] 650 mg PO Q6HR PRN tab 06/07/21 [Rx] Amiodarone [Cordarone] See Taper PO DAILY #72 tablet 06/07/21 [Rx] Apixaban [Eliquis] 5 mg PO BID #60 tab 06/07/21 [Rx] Azithromycin [Zithromax] 500 mg PO HS #4 tab 06/07/21 [Rx] Cefuroxime [Ceftin] 250 mg PO BID 3 Days #6 tab 06/07/21 [Rx] Metoprolol Tartrate [Lopressor] 25 mg PO BID #60 tab 06/07/21 [Rx] Follow up Appointment(s)/Referral(s): Jacquie Marshall MD [STAFF PHYSICIAN] - 1 Week Alvino Blanton MD [Medical Doctor] - 1 Week Maximo Weber DO [Primary Care Provider] - 1-2 days Ambulatory/Diagnostic Orders: Basic Metabolic Panel [LAB.AMB] Time Frame: 2 Days, Location: None Selected Complete Blood Count w/diff [LAB.AMB] Time Frame: 2 Days, Location: None Selected Activity/Diet/Wound Care/Special Instructions: Patient would like to follow up with Dr Blanton at [facility] Please see wound care for right lower extremity r/t psoriatic plaque at [facility] Discharge Disposition: TRANSFER TO SNF/ECF
[2021-06-07] MEDS ORDERED: METOPROLOL TARTRATE 25 MG TAB PO SCH (21:00)
== END 2021-06-07 15:23 | DRG 308 ==
LOC: EC 20:43 → 3SCARD 23:16
PROVIDERS: ADMIT Hospitalist; ATTEND Hospitalist
DX: I48.0 Paroxysmal atrial fibrillation (principal); J18.9 Pneumonia, unspecified organism; J44.0 Chronic obstructive pulmonary disease with (acute) lower respiratory infection; I08.1 Rheumatic disorders of both mitral and tricuspid valves; Z20.822 Contact with and (suspected) exposure to COVID-19; E78.5 Hyperlipidemia, unspecified; L40.9 Psoriasis, unspecified; M79.671 Pain in right foot; R53.1 Weakness; I10 Essential (primary) hypertension; M19.90 Unspecified osteoarthritis, unspecified site; K21.9 Gastro-esophageal reflux disease without esophagitis; R29.6 Repeated falls; W18.30XA Fall on same level, unspecified, initial encounter; Y92.009 Unspecified place in unspecified non-institutional (private) residence as the place of occurrence of the external cause; Z79.01 Long term (current) use of anticoagulants; Z79.02 Long term (current) use of antithrombotics/antiplatelets; Z85.828 Personal history of other malignant neoplasm of skin; Z86.73 Personal history of transient ischemic attack (TIA), and cerebral infarction without residual deficits; Z87.891 Personal history of nicotine dependence; Z98.1 Arthrodesis status; Z98.42 Cataract extraction status, left eye; Z98.41 Cataract extraction status, right eye; Z96.651 Presence of right artificial knee joint; Z96.661 Presence of right artificial ankle joint; Z79.899 Other long term (current) drug therapy; Z79.82 Long term (current) use of aspirin
CPT/HCPCS: 36415; 70450; 71045; 72125; 72170; 80048; 80053; 83735; 83880; 84484; 85025; 85027; 85610; 85730; 87635; 93005; 93306; 94640; 96365; 96375; 99285